=== PATIENT | female | born 1940 ===

== ENCOUNTER 2024-08-09 19:15 | Inpatient (IN) | payer OTHER, SELFPAY ==
[2024-08-09 19:21] VITALS: BP 103/53
[2024-08-09 20:38] VITALS: BP 111/52
--- NOTE | 2024-08-09 21:56 | HPS.HSE ---
Family Physician
-
Family Physician: Martin Padgett
Chief Complaint
-
Shortness of breath
History of Present Illness
This is an 84-year-old female with past medical history that is significant for aortic stenosis, mitral regurg, hypertension, CHF, nonobstructive CAD, proximal atrial fibrillation, insulin-dependent diabetes who presented to outside hospital for
shortness of breath where she was found to have CHF exacerbation and possible bilateral pneumonia, initially managed and transferred here for TAVR.
She was apparently recently discharged from the same outside hospital for similar presentation. She reported 1 day of increased dyspnea requiring use of home CPAP and that she had oxygen saturation of 79% on arrival in the emergency department over
there. She had nausea but no chest pain cough or sputum. She had no fevers chills sweats. She was found to be in CHF requiring BiPAP. Due to severe leukocytosis the patient was also started on broad-spectrum antibiotics vancomycin and cefepime.
Cultures of the sputum were sent and pending. Patient has known severe and cardiology recommended evaluation for TAVR, patient was accepted and transferred to . Additional issues during in the admission and is GINGER on CKD. The creatinine
ranged from 1.5-1.1. At the time of discharge the creatinine was 1.1 and patient was making urine and responding to Lasix 40 mg daily. She had elevated troponin which was thought to be nonobstructive myocardial injury to be managed by managing her
congestive heart failure. She had persistently elevated potassium requiring multiple doses of Lokelma and was discharged she had a potassium of 5.3.
On arrival here she was afebrile, normotensive but hypoxic to 70s on 3 L nasal cannula. She had increased work of breathing. Examination showed crackles bilaterally. Patient was placed on nonrebreather which brought oxygen saturation to 95. She
was supposed to be on AVAPS at bedtime per records however the settings were not transferred. Patient was placed on BiPAP initially 12/5 according to prior settings. Gas shows 7.2 . BiPAP was adjusted to 16/5 and a repeat ABG shows
worsening pH and CO2. She had hyperkalemia on arrival with a potassium of 6.2, EKG without peaked T waves and no acute ischemia, patient temporized. Initial troponin was 0.4 which has been trended.
Medical History
Past Medical History
Past Medical History: Reports Arrhythmia (Atrial fibrillation, status post ablation), CAD, COPD, HTN, Hypercholesterolemia, IDDM and Valvular Disease (Severe aortic stenosis, mitral valve stenosis)
Additional Past Medical History:
Spinal stenosis
Past Surgical History: Reports Cholecystectomy and
Social History
Tobacco: Non-smoker
Alcohol: None
Drug: None
Personal:
Living: With Family
Employment: Retired
Family History
Family History: Not pertinent
Allergies / Home Medications
Allergies reflects when Allergies were last updated in [employer].
Home Medications with original date entered in [employer]
Allergy/Medication List:
Allergies
Allergy/AdvReac Type Severity Reaction Status Date / Time
Penicillins Allergy Swelling Verified 06/16/16 07:20
Sulfa (Sulfonamide Allergy Swelling Verified 06/16/16 07:20
Antibiotics)
Home Medications
Aspirin 81 mg tablet, 1 tablet oral daily
Aspirin 81 mg tablet,
Aspirin 81 mg tablet, 1 tablet oral daily
Atorvastatin 40 mg tablet, 1 tablet oral daily at bedtime
Clopidogrel for seven 5 mg tablet, 1 tablet oral daily
Furosemide 40 mg tablet, 1 tablet oral twice daily
Insulin glargine 100 units/mL, 44 units subcutaneous daily at bedtime
Magnesium oxide 400 mg tablet, 1 tablet oral twice a day
Nateglinide 120 mg tablet, 1 tablet oral 3 times daily
Nifedipine 60 mg tablet extended release, 1 tablet oral at bedtime
Pantoprazole 40 mg tablet, 1 tablet oral twice daily
Tiotropium 2.5 mcg/actuation mist, 2 sprays by inhalation daily
Albuterol sulfate 2.5 mg / 3 mL solution, 3 mL by inhalation every 6 hours as needed wheezing
Review of Systems
-
History Source: Patient
Constitutional: Reports No Symptoms
EENT: Reports No Symptoms
Respiratory: Reports Trouble Breathing
Cardiac: Reports No Symptoms
Abdomen/GI: Reports Nausea
: Reports Bey
Musculoskeletal: Reports Edema
Skin: Reports No Symptoms
Neurological: Reports No Symptoms
Endocrine: Reports No Symptoms
Hematologic/Lymphatic: Reports No Symptoms
Psych: Reports No Symptoms
Physical Exam
Vital Signs
Vital Signs
Temp Pulse Resp BP Pulse Ox
97.5 F 84 24 111/52 98
08/09/24 19:49 08/09/24 21:00 08/09/24 19:49 08/09/24 20:38 08/09/24 21:00
Physical Exam
General: Respiratory Distress
HEENT: NormoCephalic, Anicteric, Moist mucous membranes and Atraumatic
Respiratory: Wheezes, Crackles and Decreased Breath Sounds
Cardiac: S1/S2, Regular Rhythm, Murmur, Peripheral Edema and Carotid Pulses
Breast: Deferred by me
GI: Soft, Non Tender, Normal Bowel Sounds and Distended
Rectal: Deferred by Provider
Genito-urinary: Bey
Musculoskeletal: No Clubbing, No Cyanosis, Edema, Left Lower Extremity and Edema, Right Lower Extremity
Skin: Warm
Neuro: AO x 3 and Nonfocal/grossly intact
Hematologic/Lymphatic: No Lymphadenopathy
Psych: Calm
Laboratory Results
-
08/10/24 00:50
Laboratory Results
pH 7.26 (7.35-7.45) L 08/09/24 23:25
pCO2 59 mmHg (32-35) H 08/09/24 23:25
pO2 69 mmHg (83-108) L 08/09/24 23:25
HCO3 26.5 mmol/L (21-28) 08/09/24 23:25
Total Bilirubin 1.3 mg/dl (0.2-1.3) 08/10/24 00:50
AST 30 U/L (14-36) 08/10/24 00:50
ALT 45 U/L (0-35) H 08/10/24 00:50
Alkaline Phosphatase 83 U/L (38-126) 08/10/24 00:50
Troponin I Cancelled 08/10/24 00:50
Data Reviewed
-
Lab Data: Labs Reviewed by me
Old Records: Reviewed
Impression/Plan
-
IMPRESSION:
Patient with history of congestive heart failure, severe AAS and mitral regurg who presents from outside hospital for management he is in the setting of worsening heart failure. Patient arrived on 3 L hypoxic to 70s and in respiratory distress.
She had previously been weaned down to nasal cannula from BiPAP at outside hospital. Satting 96% on NRB. Crackles on examination. Acute on chronic respiratory acidosis noted.
PLAN:
1. Hypoxic Respiratory failure - Ongoing hypoxia from likely pulmonary edema. Possible superimposed pna with persistent leukocytosis
- NIPPV, was on AVAPs HS at [facility], start BIPAP 16/5 now 8 L, titrate oxygen for > 95% FIO2
- lasix 40mg iv daily at [facility], gave addition lasix 40mg IV tonight,
- Continue antibiotics cefepime 1g q 12
- Vancomycin held, check mrsa, random vanc level before dosing given renal function
- on antibiotics since 08/08, afebrile, ID consultation - sputum and blood cultures pending from [facility]
- xray in am
2. CHF - acute on chronic with severe . Non-obstructive CAD on recent echo
- cardiology consult for possible TAVR
- medical management - lasix 40mg iv daily for net negative as BP tolerates (hold parameters
- patient on labetolol 100 bid w/ hold parameters
3. Non-ischemic myocardial injury - trop 0.4 here, has been elevated since 08/08.
- continue plavix. aspirin
- trend trop daily
- cardiology consult
4. Hyperkalemia - GINGER on CKD, Dm II. Not currently on acei/arb.
- acute management of 6.2 with temporizing measures, calcium gluc,insulin/dextrose,albuterol. Given lokelma
- k restricted diet
- nephrology consultation
5. GINGER - GINGER on CKD Cr 1.5. Oliguric since arrival here despite lasix.
- trending up
- likely cardiorenal versus ATN urine lytes, creatinine, u/a
- gentle diuresis as tolerated
- nephrology consultation
6 DM II
- management with lantus 40 hs, sliding scale insulin
7. pFIB
- rate controlled
- not currently anticoagulated, reason unclear
DVT PPX - hep sq
Code status - full code
--- NOTE | 2024-08-09 21:59 | PHA.VAN.IN ---
Assessment
- Assessment
Renal Function: Appears elevated from baseline (06/17/16 BASELINE SCR: 0.8)
Concomitant Antimicrobials: CEFEPIME
- Previous Dosing Experience
Previous Regimen: NONE
Plan
- Plan
Initial / Loading Dose: 1750MG
Maintenance Regimen: DOSING BY RANDOM LEVELS
Monitoring: RANDOM VANCOMYCIN LEVEL 08/10/24 AM
Pharmacokinetics Vancomycin I
- -
Patient Age: 84
Patient Sex: Female
Vancomycin Day #: 1
Indication: Pulmonary/Respiratory
Requesting Provider: PHUONG
Pertinent Antimicrobial Allergies:
Allergies
Penicillins Allergy (Verified 06/16/16 07:20)
Swelling
skin red, swollen face, skin peeled
Sulfa (Sulfonamide Antibiotics) Allergy (Verified 06/16/16 07:20)
Swelling
skin red, swollen face, skin peeled
Height / Weight:
Height 5 ft 7 in
Actual Weight 75.8 kg
Pertinent Past Medical History: IDDM
- Vital Signs / Lab Results
Temp Pulse Resp BP Pulse Ox
97.5 F 84 24 111/52 98
08/09/24 19:49 08/09/24 21:00 08/09/24 19:49 08/09/24 20:38 08/09/24 21:00
[2024-08-09 22:00] VITALS: PULSE 2; PULSE 84
[2024-08-09 22:38] VITALS: BP 110/49
[2024-08-09 23:12] LABS: Glucose - Point of Care 197 mg/dl (70-99)
[2024-08-09] MEDS: STERILE WATER FOR INJECTION 10 ML IV (23:14)
[2024-08-09] MEDS: MAXIPIME 2000 MG IV (23:14)
[2024-08-09] MEDS: LASIX 40 MG IV (23:15)
[2024-08-09] MEDS: HEPARIN 5000 UNITS SC (23:28)
[2024-08-09] MEDS: LANTUS 0.4 UNITS SC (23:28)
[2024-08-09 23:35] LABS: B.E. -0.9 mmol/L; HCO3 26.5 mmol/L (21-28); O2 Saturation % 96.4 % (94-98); PCO2 59 mmHg (32-35); PO2 69 mmHg (83-108); pH 7.26 (7.35-7.45)
[2024-08-09 23:37] LABS: O2 Therapy 8L
[2024-08-09 23:55] VITALS: BP 103/51
[2024-08-10] VITALS (22 sets, daily range): BP systolic 89–121; BP diastolic 45–75; PULSE 2–81; BMI 26.4
[2024-08-10] MEDS: DUONEB 3 ML INH (00:31)
[2024-08-10 01:15] LABS: Hematocrit 24.8 % (37.0-47.0); Hemoglobin 7.9 g/dL (12.0-16.0); Mean Corp Hgb Conc. 31.9 g/dL (33.0-37.0); Mean Corpuscular Hgb 28.5 pg (27.0-31.0); Mean Corpuscular Volume 89.5 fL (81.0-99.0); Mean Platelet Volume 11.6 fL (7.4-10.4); Platelet Count 215 10^3/uL (130-400); Red Blood Cell Count 2.77 10^6/uL (4.20-5.40); Red Cell Dist. Width 16.3 % (11.5-14.5); White Blood Cell Count 20.8 10^3/uL (4.8-10.8)
[2024-08-10 01:37] LABS: ALT (SGPT) 45 U/L (0-35); AST (SGOT) 30 U/L (14-36); Albumin 3.9 g/dl (3.5-5.0); Alkaline Phosphatase 83 U/L (38-126); Blood Urea Nitrogen 66 mg/dl (7-17); Calcium 8.9 mg/dl (8.4-10.2); Carbon Dioxide 24 mmol/L (22-30); Chloride 94 mmol/L (98-107); Direct Bilirubin 0.4 mg/dl (0.0-0.4); Estimated Creatinine Clearance 27 ml/min; Glucose 162 mg/dl (70-99); HDL Cholesterol 52 mg/dl; LDL Cholesterol, Calculated 58 mg/dl; Magnesium 2.8 mg/dl (1.6-2.3); Phosphorus 6.2 mg/dl (2.5-4.5); Potassium 6.2 mmol/L (3.5-5.1); Sodium 129 mmol/L (135-145); Total Bilirubin 1.3 mg/dl (0.2-1.3); Total Cholesterol 141 mg/dl (50-199); Total Protein 6.2 g/dl (6.3-8.2); Triglyceride 157 mg/dl (10-149); Very Low Density Lipoprotein 31 mg/dl (0-30); eGFR 34.15
[2024-08-10 01:44] LABS: Troponin I 0.405 ng/ml
[2024-08-10 01:58] LABS: Glucose - Point of Care 194 mg/dl (70-99)
[2024-08-10 02:00] LABS: TSH Reflex To Free T4 5.23 uIU/ml (0.47-4.68)
[2024-08-10] MEDS: DEXTROSE 50% SYRINGE 25 GRAMS IV (02:09)
[2024-08-10] MEDS: SODIUM BICARBONATE 50 MEQ IV (02:12)
[2024-08-10] MEDS: CALCIUM GLUCONATE 1000 MG IV (02:32)
[2024-08-10] MEDS: NOVOLIN R 0.1 UNITS IV (02:33)
[2024-08-10] MEDS: VENTOLIN NEBULES INH (02:47)
[2024-08-10] MEDS: VENTOLIN NEBULES 10 MG INH (02:51)
[2024-08-10 03:25] LABS: Glucose - Point of Care 242 mg/dl (70-99)
[2024-08-10] MEDS: LOKELMA 10 GRAM PO ×3 (03:25→21:52)
[2024-08-10 04:44] LABS: Glucose - Point of Care 232 mg/dl (70-99)
[2024-08-10 05:22] LABS: Venous Blood Gas B.E. 0.7 mmol/L (-4 to +4); Venous Blood Gas HCO3 28.9 mmol/L (22-27); Venous Blood Gas O2 Sat % 54.1 %; Venous Blood Gas pCO2 69 mmHg (35-48); Venous Blood Gas pH 7.23 (7.32-7.43); Venous Blood Gas pO2 30 mmHg (30-50)
[2024-08-10 05:27] LABS: Hematocrit 24.5 % (37.0-47.0); Hemoglobin 7.8 g/dL (12.0-16.0); Mean Corp Hgb Conc. 31.8 g/dL (33.0-37.0); Mean Corpuscular Hgb 28.8 pg (27.0-31.0); Mean Corpuscular Volume 90.4 fL (81.0-99.0); Mean Platelet Volume 11.5 fL (7.4-10.4); Platelet Count 211 10^3/uL (130-400); Red Blood Cell Count 2.71 10^6/uL (4.20-5.40); Red Cell Dist. Width 16.6 % (11.5-14.5); White Blood Cell Count 18.1 10^3/uL (4.8-10.8)
[2024-08-10 05:42] LABS: Vancomycin Random 13.6 ug/ml
[2024-08-10 05:44] LABS: Blood Urea Nitrogen 70 mg/dl (7-17); Carbon Dioxide 28 mmol/L (22-30); Chloride 93 mmol/L (98-107); Estimated Creatinine Clearance 24 ml/min; Glucose 188 mg/dl (70-99); Potassium 5.6 mmol/L (3.5-5.1); Sodium 129 mmol/L (135-145); eGFR 29.39
[2024-08-10 06:16] LABS: Troponin I 0.554 ng/ml
--- NOTE | 2024-08-10 06:45 | PTCARENOTE ---
Pt received as Tx from Seferino Vu at change of shift. Upon Tx, pt. appeared to be in distress, tachypneic, hunched over in stretcher with labored breathing. Pt also with complaints of SOB. POX 74% on 4L NC. O2 titrated up to 6L NC and POX
80%. Pt placed on Nonrebreather at 10L and POX up to 92%. Dr. Wolf to bedside to assess pt and place admission orders. Orders for continuous Bipap placed and respiratory to bedside to set up. Labs ordered and obtained, K critical at 6.2,
notified and medications administered per orders. Bipap settings adjusted based on ABG results. Dr. Wolf back to bedside to reassess pt. VBG ordered and sent. Pt continues to decompensate despite Bipap. Higher level of care ordered. Pt
transferred to CVICU and report given to HAUL DRIVER.
[2024-08-10 06:53] LABS: Glucose - Point of Care 203 mg/dl (70-99)
[2024-08-10 07:34] LABS: B.E. 2.2 mmol/L; HCO3 29.4 mmol/L (21-28); O2 Saturation % 98.7 % (94-98); PCO2 64 mmHg (32-35); PO2 93 mmHg (83-108); pH 7.27 (7.35-7.45)
[2024-08-10] MEDS: SPIRIVA RESPIMAT 2.5 MCG 2 PUFF INH (07:54)
[2024-08-10 08:23] LABS: Glucose - Point of Care 181 mg/dl (70-99)
[2024-08-10] MEDS: HEPARIN 5000 UNITS SC ×2 (08:25→16:41)
[2024-08-10] MEDS: LASIX 40 MG IV (08:25)
--- NOTE | 2024-08-10 08:43 | PTCARENOTE ---
Received pt from IVU RN; pt AAOx3 and resting comfortably in bed; NSR on monitor and VSS; Lungs Diminished, Crackles and Coarse throughout; BIPAP placed 14/5 and labs drawn; hypoactive active bowel sounds; Bey catheter draining yellow urine; B/L
Pedal pulse present by Doppler; +2 lower extremity edema; skin tear on lower abdomen dressing C/D/I; see nursing documentation for further details.
[2024-08-10] MEDS: TRANDATE 100 MG PO ×2 (09:13→20:26)
[2024-08-10] MEDS: MAXIPIME 2000 MG IV (09:13)
[2024-08-10] MEDS: STERILE WATER FOR INJECTION 10 ML IV (09:13)
[2024-08-10] MEDS: LOW STRENGTH ASPIRIN 81 MG PO (09:13)
--- NOTE | 2024-08-10 09:21 | PTCARENOTE ---
Turned pt, CHG bath provided and mouth care preformed; Sacrum St 2 noted on sacrum, per pt this St 2 was from a previous hospital stay at [facility]; silicone boarder foam applied and pt made a Q2turn.
--- NOTE | 2024-08-10 09:27 | W.PN.HOSP.TC ---
Today's Communication/Plan
-
see AP
Assessment / Plan
Assessment / Plan
HPI: 84-year-old female with past medical history significant for aortic stenosis, mitral regurg, hypertension, CHF, nonobstructive CAD, proximal atrial fibrillation, insulin-dependent diabetes who presented to outside hospital for shortness of
breath where she was found to have CHF exacerbation and possible bilateral pneumonia, initially managed and transferred here for TAVR.
She was apparently recently discharged from the same outside hospital for similar presentation. She reported 1 day of increased dyspnea requiring use of home CPAP and that she had oxygen saturation of 79% on arrival in the emergency department over
there. She was found to be in CHF requiring BiPAP. Due to severe leukocytosis the patient was also started on broad-spectrum antibiotics vancomycin and cefepime. Cultures of the sputum were sent and pending.
Patient has known severe and cardiology recommended evaluation for TAVR, patient was accepted and transferred to . Additional issues during in the admission and is GINGER on CKD.
Her creatinine ranged from 1.5-1.1. At the time of discharge, her creatinine was 1.1 and patient was making urine and responding to Lasix 40 mg daily.
She had elevated troponin which was thought to be nonobstructive myocardial injury. She had persistently elevated potassium requiring multiple doses of Lokelma and was discharged with a potassium level of 5.3.
On arrival here she was afebrile, normotensive but hypoxic to 70s on 3 L nasal cannula. She had increased work of breathing. Examination showed crackles bilaterally. Patient was placed on nonrebreather which brought oxygen saturation to 95. She
was supposed to be on AVAPS at bedtime per records however the settings were not transferred.
She had hyperkalemia on arrival with a potassium of 6.2, EKG without peaked T waves and no acute ischemia, patient temporized. Initial troponin was 0.4.
A/P:
# Acute on chronic hypoxic respiratory failure
# Ongoing hypoxia from likely pulmonary edema, possible superimposed HAP with persistent leukocytosis
# Acute respiratory acidosis
Cont NIPPV with BIPAP 16/5. She was on AVAPs HS at [facility]
Cont IV lasix 40mg daily
Continue antibiotics cefepime 1g q 12, Vanco per pharmacy dosing
Check mrsa, random vanc level before dosing given renal function
Of note, pt had been on antibiotics since 08/08, afebrile
ID consultation - sputum and blood cultures pending from [facility]
Check CXR
Geology Scientist on board
IV PPI for GI protection
# Acute on chronic CHF 2/2 severe .
cardiology consult for possible TAVR
Medical management with lasix 40mg iv daily for net negative as BP tolerates (hold parameters)
patient on labetalol 100 bid w/ hold parameters
# Non-ischemic myocardial injury
Trend trop until peal
continue plavix, aspirin
cardiology consulted
# Hyperkalemia likely 2/2 GINGER on CKD, Dm II.
Not currently on acei/arb.
s/p temporizing measures, calcium gluc, insulin/dextrose, albuterol. s/p lokelma
K improved from 6.2 to 5.6
k restricted diet
nephrology consultation
# GINGER on CKD ?stage 3, cardiorenal versus ATN
Oliguric since arrival here despite lasix.
Follow SCr
IV lasix as above
Hold ACEI/ARB (med recc not done, unclear home meds)
nephrology consultation
# IDDM
Cont lantus 40 HS,
Cover with sliding scale insulin
# pFIB, rate controlled
Cont Labetalol
not currently anticoagulated, reason unclear
# HTN
BP controlled on Labetalol and nifedipine, cont with holding parameter
DVT PPX - hep sq
Code status - full code
updated nino Gloria on the phone
CC Mx for hypoxic resp failure, CC time 45 min
Anticipated Discharge: > 48 hours
Subjective/Interval History
-
Date of Service: August 10, 2024
Objective Data
-
Labs:
Laboratory Results
08/09/24 08/10/24 08/10/24
23:25 00:50 05:13
WBC 20.8 H 18.1 H
Hgb 7.9 L 7.8 L
Hct 24.8 L 24.5 L
Plt Count 215 211
HCO3 26.5
Sodium 129 L 129 L
Potassium 6.2 H* Pending
Chloride 94 L
Carbon Dioxide 24
BUN 66 H
Creatinine 1.5 H
Glucose 162 H
Calcium 8.9
Total Bilirubin 1.3
AST 30
ALT 45 H
Alkaline Phosphatase 83
08/10/24 08/10/24 08/10/24
05:13 05:13 07:15
WBC
Hgb
Hct
Plt Count
HCO3 29.4 H
Sodium
Potassium Cancelled 5.6 H
Chloride 93 L
Carbon Dioxide 28
BUN 70 H
Creatinine 1.7 H
Glucose 188 H
Calcium 9.0
Total Bilirubin
AST
ALT
Alkaline Phosphatase
08/10/24
09:15
WBC
Hgb
Hct
Plt Count
HCO3 Pending
Sodium
Potassium
Chloride
Carbon Dioxide
BUN
Creatinine
Glucose
Calcium
Total Bilirubin
AST
ALT
Alkaline Phosphatase
Vital Signs:
Vital Signs
Temp Pulse Resp BP Pulse Ox
36.4 C 76 23 121/49 99
08/10/24 08:00 08/10/24 09:10 08/10/24 09:10 08/10/24 08:00 08/10/24 09:10
I&O
08/09/24 08/10/24 08/11/24
06:59 06:59 06:59
Output Total 175 / 175 90 / 90
Balance -175 / -175 -90 / -90
Review of Systems
-
All other systems: Reviewed and negative
Physical Exam
-
General: Well Developed, Well Nourished, Comfortable, Respiratory Distress, Conversant and Appears Chronically Ill
HEENT: Normocephalic, Atraumatic, Nose Appears Normal, Ears Appear Normal and Oxygen (BIPAP)
Respiratory: Clear to Auscultation and Non Labored Respirations; Negative Accessory Resp Muscle Use
Cardiac: Regular Rhythm, S1/S2 and Murmur
GI: Soft, Nontender, Nondistended and Normal Bowel Sounds
Skin: Warm and Dry
Neuro: Awake, Alert and Oriented
Psych: Calm and Intact Judgement/Insight
Data Reviewed
-
Labs: Labs Reviewed by me
--- NOTE | 2024-08-10 09:28 | PHA.VAN.FU ---
Addendum entered and electronically signed by Teresa Stuart [facility] 08/10/24 09:34:
Of note, Vancomycin 1750 mg loading dose was not administered
Original Note:
Vancomycin Assessment / Plan
- Assessment
Renal Function: SCR Increasing (no baseline data)
WBC's are: Trending Down
In the past 24 hrs, patient has been: Afebrile
Concomitant Antimicrobials: cefepime
- Assessment - Therapeutic Drug Monitoring
Random Level: 13.6 - unknown time of last dose
- Dosing Plan
Continue: to dose by level
Dosing by Level: Re-dose today (750 mg)
- Monitoring Plan
Random Level: 12/12 am
MRSA Screen: Ordered per protocol (PCR)
- Follow Up
Pharmacy will continue to follow.
Vancomycin Follow UP
- -
Patient Age: 84
Patient Sex: Female
Vancomycin Day #: 2
Indication: Pulmonary/Respiratory
Requesting Provider: PHUONG
Pertinent Antimicrobial Allergies:
Allergies
Penicillins Allergy (Verified 06/16/16 07:20)
Swelling
skin red, swollen face, skin peeled
Sulfa (Sulfonamide Antibiotics) Allergy (Verified 06/16/16 07:20)
Swelling
skin red, swollen face, skin peeled
Height / Weight:
Height 5 ft 8 in
Actual Weight 76.5 kg
Pertinent Past Medical History: IDDM, CHF, CAD; received vancomycin from [facility] prior to transfer
- Vital Signs / Lab Results
Temp Pulse Resp BP Pulse Ox
97.5 F 76 23 121/49 99
08/10/24 08:00 08/10/24 09:10 08/10/24 09:10 08/10/24 08:00 08/10/24 09:10
Lab Results - Hematology
08/10/24 08/10/24
00:50 05:13
WBC 20.8 H 18.1 H
Lab Results - Chemistry
08/10/24 08/10/24
00:50 05:13
BUN 66 H 70 H
Creatinine 1.5 H 1.7 H
Estimated Creat Clear 24
Albumin 3.9
Therapeutic Drug Monitoring
Random Vancomycin 13.6 ug/ml 08/10/24 05:13
[2024-08-10 09:30] LABS: B.E. 1.6 mmol/L; HCO3 28.9 mmol/L (21-28); O2 Saturation % 99.5 % (94-98); PCO2 63 mmHg (32-35); PO2 94 mmHg (83-108); pH 7.27 (7.35-7.45)
[2024-08-10] MEDS: VANCOCIN 150 IV (10:01)
--- NOTE | 2024-08-10 10:27 | CON.CAR ---
Addendum entered and electronically signed by Kartik Moore MD 08/10/24 11:50:
I saw and examined the patient.
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
Comment: 84-year-old female (formerly known to Dr Brito, transitioning to Dr. Christian), hypertension, dyslipidemia, paroxysmal atrial fibrillation status post ablation (not on oral anticoagulation), TIA (on DAPT), bilateral carotid disease, HFpEF,
and severe aortic stenosis who was received in transfer from [facility] for evaluation of TAVR. She has a history of recurrent hospitalization with hypoxic respiratory failure now in the setting of heart failure and possible pneumonia
currently on BiPAP for respiratory support. We are asked to evaluate and expedite TAVR evaluation. However, currently, she is oliguric after Lasix dosing, hyponatremic, hyperkalemic and anemic. She complains of fatigue and shortness of breath.
On exam, she appears in mild distress with a BiPAP mask on she has a regular rate and rhythm with a 2 out of 6 crescendo decrescendo murmur heard in all areas but her heart sounds are caudally displaced, crackles heard bilaterally midway down.
Extremities with 1-2+ pitting edema. ECG shows sinus rhythm with primary AV conduction delay, right bundle branch block with left anterior fascicular block,echocardiogram report below with normal LVEF and severe aortic stenosis, PFO. Grade 2
diastolic dysfunction. Overall, she needs medical optimization before consideration of an valve replacement. Active problems include hypoxic respiratory failure requiring BiPAP, acute heart failure with preserved EF, symptomatic severe aortic
stenosis, type II non-STEMI in the setting of heart failure and severe aortic stenosis, acute kidney injury, bilateral pneumonia, hyponatremia in the setting of hypervolemia, and anemia. Chronic medical conditions to be considered as a history of
atrial fibrillation/flutter not on anticoagulation, TIA, right bilateral carotid disease. We will continue to try to medically manage her volume status, we await the assistance of nephrology. Likely needs more diuretic later today. Case discussed
with pinner printed circuit boards Dr. Morris who will evaluate her tomorrow. Medicine to evaluate for pneumonia and anemia. In the future, given her history of chronic atrial fibrillation, CHADS2 Vascor of 9 would recommend transitioning her DAPT
to Plavix and Eliquis.
Will follow-up.
Original Note:
Consultation
Consultation Request
Date/Time Consultation Requested: 08/09/2024 21:00
Date/Time Consultation Performed: 08/10/2024 08:30
Requesting Provider: Dr. Wolf
Performing Provider: BLAYNE Barajas for Dr. Moore
Reason for Consultation: Acute heart failure
Medical History
-
Chief Complaint: Shortness of breath
History of Present Illness:
Brisa Bella is an 84-year-old female (formerly known to Dr Brito, transitioning to Dr. Christian), hypertension, dyslipidemia, paroxysmal atrial fibrillation status post ablation (not on oral anticoagulation), TIA (on DAPT), bilateral carotid
disease, HFpEF, and severe aortic stenosis who initially presented to [facility] with a chief complaint of shortness of breath on 08/08/2024. At home her SpO2 was 79% on room air. She had an elevated BNP, abnormal troponin,
leukocytosis, and bilateral patchy opacities on chest x-ray. She was diuresed with intravenous furosemide, placed on BiPAP, and admitted to the ICU for further management. VBG showed compensated respiratory acidosis. She was then transitioned to
3 L nasal cannula. She was transferred to [facility] last evening for expedited TAVR evaluation.
The patient was recently admitted at [facility] and was just discharged 2 days prior to this readmission.
Past Medical History
Past Medical History: Arrhythmias (Paroxysmal atrial fibrillation [status post ablation, not on oral anticoagulation]), CHF, HTN, Hypercholesterolemia, Valvular Disease (Severe aortic stenosis, mitral annular calcification) and Other (TIA, bilateral
carotid disease [on DAPT])
Past Surgical History: Cholecystectomy and Orthopedic
Social History
Tobacco: Non-Smoker
Alcohol: None
Drug: None
Living: With Family (disabled daughter)
Employment: Retired
Family History
Family History: Reviewed & Not Pertinent
Allergies / Home Medications
Allergy/AdvReac Type Severity Reaction Status Date / Time
Penicillins Allergy Swelling Verified 06/16/16 07:20
Sulfa (Sulfonamide Allergy Swelling Verified 06/16/16 07:20
Antibiotics)
�Medication �Instructions �Recorded �Confirmed �Type
ascorbic acid (vitamin C) 500 mg 1,000 mg PO DAILY 06/16/16 06/16/16 History
tablet (Vitamin C)
calcium carbonate (calcium) 500 mg PO BID 06/16/16 06/16/16 History
cholecalciferol (vitamin D3) 50 2,000 unit PO DAILY 06/16/16 06/16/16 History
mcg (2,000 unit) tablet
coenzyme [id number] E 100 mg-100 500 mg PO DAILY 06/16/16 06/16/16 History
unit capsule
cyanocobalamin (vitamin B-12) 1,000 mcg PO DAILY 06/16/16 06/16/16 History
1,000 mcg tablet
fish oil-dha-epa 1,200 mg-144 2 ea PO BID 06/16/16 06/16/16 History
mg-216 mg capsule
insulin glargine 100 unit/mL 28 units SC HS 06/16/16 06/16/16 History
subcutaneous solution (Lantus
U-100 Insulin)
insulin glargine 100 unit/mL 38 units SC DAILY 06/16/16 06/16/16 History
subcutaneous solution (Lantus
U-100 Insulin)
irbesartan 300 mg tablet 300 mg PO DAILY 06/16/16 06/16/16 History
labetalol 300 mg tablet 300 mg PO HS 06/16/16 06/16/16 History
labetalol 300 mg tablet 600 mg PO DAILY 06/16/16 06/16/16 History
lansoprazole 30 mg capsule,delayed 30 mg PO DAILY 06/16/16 06/16/16 History
release
lisinopril 20 mg tablet 20 mg PO BID 06/16/16 06/16/16 History
multivitamin with minerals-ferrous 1 ea PO DAILY 06/16/16 06/16/16 History
sulfate 4.5 mg iron tablet (One
Daily Multivitamins with Minerals)
nateglinide 120 mg tablet (Starlix) 120 mg PO TID 06/16/16 06/16/16 History
nifedipine 90 mg tablet,extended 90 mg PO DAILY 06/16/16 06/16/16 History
release
simvastatin 20 mg tablet 20 mg PO QPM 06/16/16 06/16/16 History
apixaban 5 mg tablet (Eliquis) 5 mg PO BID ##60 06/17/16 Rx
metformin 500 mg tablet 1,000 mg (2 x 500 mg) PO DAILY ##0 06/17/16 06/16/16 Rx
metformin 500 mg tablet 500 mg PO BID@1200,1700 ##0 06/17/16 06/16/16 Rx
Review of Systems
-
History Source: Patient
All other systems: Negative unless noted
Constitutional: Fatigue
EENT: No Symptoms
Respiratory: Trouble Breathing
Cardiac: No Symptoms
Abdomen/GI: Anorexia
: No Symptoms
Musculoskeletal: No Symptoms
Skin: No Symptoms
Neurological: Weakness
Endocrine: No Symptoms
Hematologic/Lymphatic: No Symptoms
Physical Exam
Vital Signs
Temp Pulse Resp BP Pulse Ox
97.5 F 82 31 121/49 98
08/10/24 08:00 08/10/24 10:00 08/10/24 10:00 08/10/24 08:00 08/10/24 10:00
Lab Results
08/10/24 05:13
Troponin I 0.554 ng/ml H* D 08/10/24 05:13
Troponin I Cancelled 08/10/24 05:13
Physical Exam
General: Well Developed, Well Nourished and Respiratory Distress (mild)
HEENT: Normocephalic, Anicteric and Moist Mucous Membranes
Respiratory: Crackles (coarse) and Accessory Resp Muscle Use
Cardiac: S1/S2, Regular Rhythm and Murmur (III/ crescendo decrescendo)
Breast: Deferred by me
GI: Soft, Non Tender, Non Distended and Normal Bowel Sounds
Rectal: Deferred by Provider
Genito-urinary: Clear Urine
Musculoskeletal: No Clubbing, No Cyanosis and No Edema (+2 bilateral lower extremity)
Skin: Warm and Dry
Neuro: AO x 3
Hematologic/Lymphatic: No Lymphadenopathy
Psych: Calm
Impression / Plan
-
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
to [facility] with a chief complaint of shortness of breath on 08/08/2024.
Primary soda clerk: Formerly Dr. Brito, now with Dr. Christian
HFpEF, acute on chronic
-Update echocardiogram for LVEF reassessment
-Await output on furosemide 40 mg, she may need a higher dose, per nephrology
-GDMT will be limited due to her renal function
-Scale at [facility] 75.8 kg 08/08/2024
Severe aortic stenosis
-Mean gradient 46 mmHg on echocardiogram in May with SEVERO 0.7
-Goal euvolemia
-Structural heart team has evaluated the patient
Abnormal troponin, Type II TX
-Chest pain-free
-Trend to peak
-Consider transition to apixaban when she is clinically stable
GINGER on CKD versus cardiorenal syndrome, nephrology following
Hyperkalemia, nephrology consulted
Hyponatremia, likely hypervolemia
Anemia, no acute bleeding, type unknown, per primary service
Paroxysmal atrial fibrillation
-Prior flutter ablation in 2013 ([facility], Dr. Berry at [facility]) and then fibrillation in 2016 ([facility])
-Stable in sinus rhythm
-Oral Anticoagulation: None, she had a nosebleed on Pradaxa
-[id number]: score at least 9 (Heart failure, HTN, age 75 or more, prior Stroke/TIA, DM, Vascular disease, female gender)
Hypertension
-Stop Procardia, avoid hypotension
Possible PFO on prior echocardiogram
Nonobstructive coronary artery disease, stable without chest pain, continue aspirin
Sick sinus syndrome, documented prior to her second ablation, does not seem to be an active issue
Type 2 diabetes mellitus, on long-acting insulin, Hgba1c pending, per primary service
TIA, no residual deficit
Dyslipidemia, LDL at goal, continue current atorvastatin dosing
Bilateral carotid artery disease, DAPT was recommended by her neurologist (clopidogrel/aspirin)
DATA:
Transthoracic echocardiogram, 05/04/2024:
CONCLUSIONS
Normal left ventricular size, moderate concentric wall thickness and systolic
function.
No regional wall motion abnormalities are seen.
The ejection fraction is estimated at 65 %.
Grade 2 diastolic dysfunction.
Normal right ventricular size and function.
Moderately severe left atrial enlargement
Small fiber directional PFO may be present.
Normal right atrium.
Moderate MAC. Structurally abnormal mitral valve w/ mildly thickened leaflets
and mild mitral stenosis w/ mild regurgitation.
Structurally abnormal aortic valve with calcium and thickness with restriction
and significant stenosis consistent with severe . Mean gradient 46 mmhg w/
SEVERO 0.7 sq cm.
Structurally normal tricuspid valve without significant stenosis w/ mild
regurgitation.
Estimated pulmonary artery pressure is 24 mmHg.
Structurally normal pulmonic valve without significant stenosis w/ trivial
regurgitation.
Normal pericardium without effusion.
Normal aortic root.
BC not well-seen.
--- NOTE | 2024-08-10 11:24 | CONSULT.STRU ---
Consultation
-
Date/Time Consultation Requested: 08/10/2024
Date/Time Consultation Performed: 08/10/2024
Requesting Provider: Dr. Lobo
Performing Provider: BLAYNE Wray
Reason for Consultation: Severe Aortic Stenosis/ TAVR evaluation
Patient History
Physicians
Family Physician: Steven Padgett
Outpatient Window Framer: Chloe Nagel, transferring care to Eloy Christian
Primary Window Framer: Eloy Christian
History of Present Illness
84-year-old female with past medical history significant for aortic stenosis, mild mitral regurg, mild mitral stenosis, hypertension, HFpEF, nonobstructive CAD, paroxysmal atrial fibrillation with history of ablation (not on anticoagulation),
carotid stenosis, insulin-dependent diabetes who presented to [facility] for shortness of breath where she was found to have CHF exacerbation (thought to be related to her severe aortic stenosis) and possible bilateral pneumonia. She
was transferred here late last evening for TAVR evaluation. On arrival to the ER here she was afebrile, normotensive but hypoxic to 70s on 3 L nasal cannula. She had increased work of breathing and examination showed crackles bilaterally. Patient
was placed on nonrebreather which brought oxygen saturation to 95. She was initially admitted to IVU and then transferred to the CVICU this am.
Prior to her most recent admissions, she had been feeling increasing CRAVEN over the past year. More recently she has had 2 pillow orthopnea, increasing peripheral edema over past two weeks, decreased appetite and nausea. She has followed regularly
with Dr. Brito and was transferring care to Dr. Christian. Her most recent echo prior to her hospitalizations was in May and at that time it was notable for EF 65%, Grade 2 diastolic dysfunction, moderate MAC, mild MR, mild mitral stenosis and
severe aortic stenosis with a PG/M.7/45.6, SEVERO: 0.7.
Past Medical History
Past Medical History: Atrial Fib (h/o ablation, not on anticoagulation), CHF, CVA/TIA (h/o TIA about 10 years ago, no residual), CRAVEN, GERD, HTN, Hypercholesterolemia, Hypothyroidism, IDDM, Renal Insufficiency, Valvular Disease (Severe , Moderate
MAC, mild mitral stenosis with mild MR, Mild TR) and Other
Bilateral carotid disease, PVD, obesity, Lumbosacral disc disease, spinal stenosis, h/o GI bleed, restless leg syndrome, Rheumatoid arthritis, h/o glaucoma
Past Surgical History
Past Surgical History: Cholecystectomy and Other (A-fib ablation 2013, PVI 06/16/2016 lens implants, right shoulder surgery)
Dental History
Upper dentures, own lower teeth. At least 2 years since she has seen a dentist
Family History
Mother: at Age
Father: at Age
Family Medical History: Early CAD
Social History
Alcohol: None
Drug: None
Tobacco: Non-Smoker
Living: With Family (disabled daughter)
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
Allergies
Allergy/AdvReac Type Severity Reaction Status Date / Time
Penicillins Allergy Swelling Verified 06/16/16 07:20
Sulfa (Sulfonamide Allergy Swelling Verified 06/16/16 07:20
Antibiotics)
Home Medications
�Medication �Instructions �Recorded �Confirmed �Type
ascorbic acid (vitamin C) 500 mg 1,000 mg PO DAILY Supplement 06/16/16 06/16/16 History
tablet (Vitamin C)
calcium carbonate (calcium) 500 mg PO BID Supplement 06/16/16 06/16/16 History
cholecalciferol (vitamin D3) 50 2,000 unit PO DAILY Supplement 06/16/16 06/16/16 History
mcg (2,000 unit) tablet
coenzyme [id number] E 100 mg-100 500 mg PO DAILY Supplement 06/16/16 06/16/16 History
unit capsule
cyanocobalamin (vitamin B-12) 1,000 mcg PO DAILY Supplement 06/16/16 06/16/16 History
1,000 mcg tablet
fish oil-dha-epa 1,200 mg-144 2 ea PO BID Supplement 06/16/16 06/16/16 History
mg-216 mg capsule
insulin glargine 100 unit/mL 28 units SC HS Diabetes 06/16/16 06/16/16 History
subcutaneous solution (Lantus
U-100 Insulin)
insulin glargine 100 unit/mL 38 units SC DAILY Diabetes 06/16/16 06/16/16 History
subcutaneous solution (Lantus
U-100 Insulin)
irbesartan 300 mg tablet 300 mg PO DAILY Blood Pressure 06/16/16 06/16/16 History
labetalol 300 mg tablet 300 mg PO HS Blood Pressure 06/16/16 06/16/16 History
labetalol 300 mg tablet 600 mg PO DAILY Blood Pressure 06/16/16 06/16/16 History
lansoprazole 30 mg capsule,delayed 30 mg PO DAILY GERD 06/16/16 06/16/16 History
release
lisinopril 20 mg tablet 20 mg PO BID Blood Pressure 06/16/16 06/16/16 History
multivitamin with minerals-ferrous 1 ea PO DAILY Supplement 06/16/16 06/16/16 History
sulfate 4.5 mg iron tablet (One
Daily Multivitamins with Minerals)
nateglinide 120 mg tablet (Starlix) 120 mg PO TID Diabetes 06/16/16 06/16/16 History
nifedipine 90 mg tablet,extended 90 mg PO DAILY Blood Pressure 06/16/16 06/16/16 History
release
simvastatin 20 mg tablet 20 mg PO QPM High Cholesterol 06/16/16 06/16/16 History
apixaban 5 mg tablet (Eliquis) 5 mg PO BID Blood Clot 08/10/24 History
Prevention/Tx
metformin 500 mg tablet 1,000 mg PO DAILY Diabetes 08/10/24 History
metformin 500 mg tablet 500 mg PO BID@1200,1700 Diabetes 08/10/24 History
STS%
STS %: 16.7%
Review of Systems
-
History Source: Patient
HEENT: Reports No Symptoms
Respiratory: Reports SOB, CRAVEN (progressive over past year), Cough and Other (recent 2 pillow orthopnea)
Cardiac: Reports Nausea (past week and a half) and Edema (bilateral lower extremities, worsening over past 2 weeks)
Abdomen/GI: Reports Nausea and Other (poor appetites and epigastric pain)
: Reports No Symptoms; Denies Dysuria, Frequency or Hematuria
Musculoskeletal: Reports Edema (bilateral LE)
Skin: Reports No Symptoms
Neurological: Reports TIA (h/o about 10 years ago )
Vascular: Reports No Symptoms
Physical Exam
Vital Signs
Temp 97.5 F 08/10/24 08:00
Temp route: Axillary 08/10/24 08:00
Pulse 82 08/10/24 10:00
Rhythm: Normal sinus rhythm 08/10/24 08:47
With- Bundle Branch Block Confi 08/09/24 21:00
Resp Rate 31 08/10/24 10:00
Blood pressure 121/49 08/10/24 08:00
Blood pressure extremity used: Left upper arm 08/10/24 08:00
Position: Sitting 08/10/24 08:00
MAP (cuff-[place]al[place] Monitor) 71 08/10/24 08:00
SaO2 98 08/10/24 10:00
Nasal Cannula flow liters per minute 6 08/09/24 19:42
Oxygen Mode of Delivery BiPAP 08/10/24 09:30
Other oxygen comment 14/5 08/10/24 09:30
Flow liters per minute # 8 08/10/24 04:44
% Oxygen delivered 50 08/10/24 09:30
Can the patient verbally communicate their pain? Yes 08/10/24 08:47
Actual Weight 76.5 kg 08/10/24 06:00
Body Mass Index (BMI) 0.0 08/10/24 06:53
Labs
08/10/24 05:13
Troponin I 0.554 ng/ml H* D 08/10/24 05:13
Troponin I Cancelled 08/10/24 05:13
Arterial Blood Gases
pH 7.27 (7.35-7.45) L 08/10/24 09:15
pCO2 63 mmHg (32-35) H 08/10/24 09:15
pO2 94 mmHg (83-108) 08/10/24 09:15
HCO3 28.9 mmol/L (21-28) H 08/10/24 09:15
Base Excess 1.6 mmol/L 08/10/24 09:15
ABG O2 Sat (Measured) 99.5 % (94-98) H 08/10/24 09:15
O2 Delivery Level 08/10/24 09:15
Diagnostic Studies
07/25/2024 Cardiac Catheterization at [facility]:
1. Severe aortic stenosis with a mean gradient of 50mmHg and a calculated SEVERO of 0.70
2. Mild non-obstructive CAD
3. Severe pulmonary HTN, mild to moderately elevated wedge and left ventricular end diastolic pressures, with otherwise normal left and right heart catheterization pressures.
08/10/2024 Echocardiogram:
CONCLUSIONS
Normal biventricular size and systolic function without regional wall motion
abnormality.
Heavily calcified mitral valve and apparatus. Severe mitral stenosis.
Severe aortic stenosis.
Severe pulmonary hypertension.
Pleural effusion noted.
Compared to the prior, 05/04/2024, gradient across the mitral valve has
increased. Pulmonary pressure has increased from 24 mmHg to 75 mmHg. Pleural
effusion is noted now now noted. Aortic stenosis remains severe.
Indications:
heart failure
Rhythm: Sinus
Portable Study: Yes
Technical Quality: Technically difficult but
adequate for interpretation
Contrast: None
BP: 109 / 56
PROCEDURE
A complete Transthoracic Echocardiogram was performed utilizing two-dimensional
evaluation with color flow and spectral Doppler analysis.
FINDINGS
Left Ventricle
Normal left ventricular size, wall thickness and systolic function. No regional
wall motion abnormalities are seen. LV ejection fraction is 55-60% by Chase's
method of discs. Diastolic function indeterminate due to severe MAC.
Right Ventricle
Right ventricle not well visualized.
Left Atrium
Moderately dilated left atrium. Indexed LA volume is moderately abnormal (42-48
mL/m2).
Right Atrium
Normal right atrial size.
Mitral Valve
Heavily calcified mitral valve and apparatus. Severe mitral stenosis.
Peak/mean gradients across the mitral valve are 30/12 mmHg, respectively. Mild
mitral regurgitation.
Aortic Valve
Thickened, trileaflet aortic valve with restricted leaflet motion. Severe
aortic stenosis. Peak/mean gradients across the aortic valve are 74/55 mmHg,
respectively. Using an LVOT diameter of 2.1 cm the aortic valve by the
Continuity equation is calculated at 0.6 cm2. No aortic regurgitation is seen.
Tricuspid Valve
Tricuspid valve opens normally. Moderate tricuspid regurgitation. Estimated
pulmonary artery pressure of 75 mmHg assuming a right atrial pressure of 15
mmHg.
Pulmonic Valve
Pulmonic valve opens normally. Mild pulmonic regurgitation.
Pericardium\\Pleura
No pericardial effusion. Pleural effusion present.
Aorta
The aortic root is normal in caliber. Suboptimal suprasternal notch view.
Other Finding
The IVC is dilated and does not collapse. In limited views, there is no clear
evidence of shunting via color flow Doppler. No intracardiac mass or thrombus
formation seen.
MEASUREMENTS (Male / Female) Normal Values
2D ECHO
LV Diastolic Diameter PLAX 5.1 cm 4.2 - 5.9 / 3.9 - 5.3 cm
LV Systolic Diameter PLAX 3.5 cm
IVS Diastolic Thickness 1.0 cm 0.6 - 1.0 / 0.6 - 0.9 cm
LVPW Diastolic Thickness 1.0 cm 0.6 - 1.0 / 0.6 - 0.9 cm
LV Relative Wall Thickness 0.4
LVOT Diameter 2.1 cm
LA Systolic Diameter LX 4.7 cm 3.0 - 4.0 / 2.7 - 3.8 cm
LV Ejection Fraction MOD BP 57.5 % >= 55 %
LV Stroke Volume MOD BP 43.8 cm3
LV Cardiac Index MOD BP 1573.1 cm3/min
LV Stroke Volume MOD 4C 47.0 cm3
LV Stroke Volume 4C AL 49.8 cm3
LV Stroke Volume MOD 2C 35.3 cm3
LV Stroke Volume 2C AL 37.2 cm3
LA Area 4C View 28.5 cm2 <= 20 cm2
LA Length 4C 6.4 cm
LA Volume 99.3 cm3 18 - 58 / 22 - 52 cm3
LA Volume Index 45.6 cm3/m2 16 - 34 cm3/m2
RV Diastolic Basal Diameter 4.6 cm 2.0 - 2.8 cm
Aorta at Sinotubular Diameter 2.7 cm
Ascending Aorta Diameter 3.8 cm
Aorta at Sinuses Diameter 3.5 cm
M-MODE
AV Cusp Separation MM 0.4 cm
DOPPLER
AV Peak Velocity 431.0 cm/s
AV Peak Gradient 74.3 mmHg
AV Mean Gradient 55.0 mmHg
AV Velocity Time Integral 111.6 cm
LVOT Peak Velocity 79.3 cm/s
LVOT Peak Gradient 2.5 mmHg
LVOT Velocity Time Integral 20.0 cm
LVOT Stroke Volume 69.3 cm3
LVOT Stroke Volume Index 36.6 ml/m2 empty
LVOT Cardiac Index 2488.0 cm3/min\\m2
AV Area Cont Eq vti 0.6 cm2
AV Area Cont Eq pk 0.6 cm2
MV Peak Velocity 280.3 cm/s
MV Peak Gradient 31.4 mmHg
MV Mean Velocity 158.7 cm/s
MV Mean Gradient 11.3 mmHg
MV Area PHT 2.1 cm2
Mitral E Point Velocity 223.5 cm/s
Mitral A Point Velocity 163.0 cm/s
Mitral E to A Ratio 1.4
LV E' Lateral Velocity 3.3 cm/s
Mitral E to LV E' Lateral Ratio 68.6
LV E' Septal Velocity 3.6 cm/s
Mitral E to LV E' Septal Ratio 62.3
TR Peak Velocity 387.0 cm/s
TR Peak Gradient 59.9 mmHg
Exam
General: Well Developed, Well Nourished and Respiratory Distress (mild)
HEENT: Normocephalic, PERRLA and EOMI
Respiratory: Crackles (course bilaterally) and Accessory Muscle Use
Cardiac: Regular Rhythm and Murmur (Grade III/ systolic murmur)
GI: Soft, Non Tender, Non Distended and Normal Bowel Sounds
Rectal: Deferred by Provider
Skin: Warm and Dry
Neuro: AO x 3 and Nonfocal/Grossly Intact
Extremities: Lower Level Edema (+2 bilateral LE pitting edema) and Pulses (pedal pulses by doppler)
Psych: Calm
Assessment / Plan
-
Procedure Type:�Isolated AVR
PERIOPERATIVE OUTCOME ESTIMATE %
Operative Mortality 16.7%
Morbidity & Mortality 50.3%
Stroke 7.28%
Renal Failure 17.5%
Reoperation 5.24%
Prolonged Ventilation 39.2%
Deep Sternal Wound Infection 0.088%
Long Hospital Stay (>14 days) 45.2%
Short Hospital Stay (<6 days)* 4.34%
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
discharge. Plan was to transfer to for urgent TAVR evaluation but patient presents with multiple medical issues that may delay this work up. Will continue to have discussions with heart team on plan.
#Severe aortic stenosis
-Mean gradient 55mmHg on echocardiogram completed this morning with SEVERO 0.6
-Will need CT TAVR to evaluate valve, access and coronary heights
-Dental clearance - last dental visit 2 years- Consult Dr. Menendez once patient can tolerate being on nasal cannula, will need pannelipse
-Diurese per cardiology recommendations.
-discuss with Heart team TAVR vs SAVR/MVR given both severe aortic stenosis and mitral stenosis
#Severe Mitral Stenosis
-Heavily calcified MV, PG/M/12
-discuss with Heart team
#GINGER on CKD versus cardiorenal syndrome
-nephrology following
-Will need to discuss timing of TAVR CT given need for contrast and current renal function.
#Hyperkalemia
-nephrology consulted
-Initially treated by primary service on admission
-follow BMP
#Hyponatremia
-most likely due to hypervolemia
-Diurese per cardiology/nephrology
-Daily weights
-I&O
#Anemia
-no acute bleeding noted
-follow CBC
-primary service to follow and treat as needed
Paroxysmal atrial fibrillation
-Prior flutter ablation in 2013 (K[facility], Dr. Berry at [facility]) and then fibrillation in 2016 ([facility])
-Stable in sinus rhythm
-Oral Anticoagulation: None, she had a nosebleed on Pradaxa
-[id number]: score at least 9 (Heart failure, HTN, age 75 or more, prior Stroke/TIA, DM, Vascular disease, female gender)
Data Reviewed
-
EKG: Report Reviewed by me
Air Pumper: Report Reviewed by me
Echo: Report Reviewed by me
Labs: Labs Reviewed by me, Discussed with Physician and Discussed with Patient
Old Records: Reviewed
Critical Care Time (in minutes): 50
Total Time Spent with Patient (in minutes): 25
[2024-08-10 12:10] LABS: Glycohemoglobin (HgbA1c) 5.5 % (4.0-5.6)
[2024-08-10] MEDS: PROTONIX IV 40 MG IV (12:13)
[2024-08-10] MEDS: NSS (PRESERVATIVE FREE) 10 ML IV (12:13)
--- NOTE | 2024-08-10 12:32 | PTCARENOTE ---
Assessment unchanged; NSR on monitor and VSS; Echo done and labs taken; family at bedside and pt resting comfortably in bed.
[2024-08-10 13:13] LABS: Blood Urea Nitrogen 70 mg/dl (7-17); Calcium 8.8 mg/dl (8.4-10.2); Carbon Dioxide 28 mmol/L (22-30); Chloride 92 mmol/L (98-107); Estimated Creatinine Clearance 23 ml/min; Glucose 152 mg/dl (70-99); Potassium 5.6 mmol/L (3.5-5.1); Sodium 127 mmol/L (135-145); eGFR 27.44
[2024-08-10 13:15] LABS: Troponin I 0.705 ng/ml
[2024-08-10] MEDS: LASIX 80 MG IV ×2 (13:20→16:41)
--- NOTE | 2024-08-10 13:42 | CON.INTV ---
Consultation
Consultation Request
Date/Time Consultation Requested: 08/10/2024
Date/Time Consultation Performed: 08/10/2024
Requesting Provider:
Performing Provider: Dr.Manuel Foote
Reason for Consultation: Acute hypoxemic and hypercapnic respiratory failure.
Medical History
-
History of Present Illness:
84-year-old woman with past medical history significant for aortic stenosis, mitral valve disease, hypertension, heart failure with preserved ejection fraction, nonobstructive coronary artery disease, paroxysmal atrial fibrillation, type 2 diabetes
who presented from [facility] for shortness of breath where she was found to have heart failure and also was being treated for pneumonia given abnormal chest x-ray. Transferred to [facility] for TAVR evaluation.
Apparently recently admitted for same symptoms.
This time readmitted with hypoxemic respiratory failure, ABG with acute hypercapnia.
Patient required noninvasive mechanical ventilation.
Leukocytosis is present but patient denies any purulent sputum production, fevers, chills or hemoptysis.
She was placed on antibiotics.
She was also discovered to have acute kidney injury with hyperkalemia. Per prior records patient has been receiving Lokelma on discharge from the hospital with a potassium of 5.3.
-
Currently in the critical care unit, requiring noninvasive mechanical ventilation. States that work of breathing has decreased but is still labored.
Pulse ox is 100%.
She denies any chest pain.
Past Medical History
Past Medical History: Other (See assessment and plan)
Social History
Tobacco: Non-smoker
Alcohol: None
Drug: None
Living: With Family
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
Family History
Family History: Reviewed & Not Pertinent
Allergies / Home Medications
Allergies
Allergy/AdvReac Type Severity Reaction Status Date / Time
Penicillins Allergy Swelling Verified 06/16/16 07:20
Sulfa (Sulfonamide Allergy Swelling Verified 06/16/16 07:20
Antibiotics)
Home Medications
�Medication �Instructions �Recorded �Confirmed �Last Taken �Type
ascorbic acid (vitamin C) 500 mg 1,000 mg PO DAILY Supplement 06/16/16 06/16/16 06/15/16 08:30 History
tablet (Vitamin C)
calcium carbonate (calcium) 500 mg PO BID Supplement 06/16/16 06/16/16 06/15/16 08:30 History
cholecalciferol (vitamin D3) 50 2,000 unit PO DAILY Supplement 06/16/16 06/16/16 06/15/16 08:30 History
mcg (2,000 unit) tablet
coenzyme W50-brzpyym E 100 mg-100 500 mg PO DAILY Supplement 06/16/16 06/16/16 06/15/16 08:30 History
unit capsule
cyanocobalamin (vitamin B-12) 1,000 mcg PO DAILY Supplement 06/16/16 06/16/16 06/15/16 08:30 History
1,000 mcg tablet
fish oil-dha-epa 1,200 mg-144 2 ea PO BID Supplement 06/16/16 06/16/16 06/15/16 08:30 History
mg-216 mg capsule
insulin glargine 100 unit/mL 28 units SC HS Diabetes 06/16/16 06/16/16 06/15/16 20:00 History
subcutaneous solution (Lantus
U-100 Insulin)
insulin glargine 100 unit/mL 38 units SC DAILY Diabetes 06/16/16 06/16/16 06/15/16 07:30 History
subcutaneous solution (Lantus
U-100 Insulin)
irbesartan 300 mg tablet 300 mg PO DAILY Blood Pressure 06/16/16 06/16/16 06/16/16 05:30 History
labetalol 300 mg tablet 300 mg PO HS Blood Pressure 06/16/16 06/16/16 06/15/16 20:00 History
labetalol 300 mg tablet 600 mg PO DAILY Blood Pressure 06/16/16 06/16/16 06/16/16 05:30 History
lansoprazole 30 mg capsule,delayed 30 mg PO DAILY GERD 06/16/16 06/16/16 06/15/16 08:30 History
release
lisinopril 20 mg tablet 20 mg PO BID Blood Pressure 06/16/16 06/16/16 06/15/16 08:30 History
multivitamin with minerals-ferrous 1 ea PO DAILY Supplement 06/16/16 06/16/16 06/15/16 08:30 History
sulfate 4.5 mg iron tablet (One
Daily Multivitamins with Minerals)
nateglinide 120 mg tablet (Starlix) 120 mg PO TID Diabetes 06/16/16 06/16/16 06/16/16 05:30 History
nifedipine 90 mg tablet,extended 90 mg PO DAILY Blood Pressure 06/16/16 06/16/16 06/16/16 05:30 History
release
simvastatin 20 mg tablet 20 mg PO QPM High Cholesterol 06/16/16 06/16/16 06/15/16 20:00 History
apixaban 5 mg tablet (Eliquis) 5 mg PO BID Blood Clot 08/10/24 Unknown History
Prevention/Tx
metformin 500 mg tablet 1,000 mg PO DAILY Diabetes 08/10/24 Unknown History
metformin 500 mg tablet 500 mg PO BID@1200,1700 Diabetes 08/10/24 Unknown History
Review of Systems
-
History Source: Patient
All other systems: Negative unless noted
Vitals / Labs / Diagnostic Testing
Vital Signs
Temp Pulse Resp BP Pulse Ox
97.5 F 74 22 103/48 98
08/10/24 08:00 08/10/24 13:20 08/10/24 13:20 08/10/24 13:00 08/10/24 13:20
Lab Data
08/10/24 05:13
08/10/24 12:28
Laboratory Results
08/09/24 08/10/24 08/10/24
23:25 07:15 09:15
pH 7.26 L 7.27 L 7.27 L
pCO2 59 H 64 H 63 H
pO2 69 L 93 94
HCO3 26.5 29.4 H 28.9 H
O2 Delivery Level 8l
Microbiology
08/10/24 05:04 Nose Nasal Screen MRSA (PCR) - Final
MRSA not detected - performed by PCR methodology.
Diagnostic Testing:
Physical Exam
-
HEENT: Normocephalic
Cardiovascular: Murmur
Respiratory: Rales
GI: Soft and Non Distended
Neurology: Awake, Alert, AO x 3 and No Motor Deficits
Skin: Warm
General: Comfortable
Assessment
-
84-year-old woman with past medical history noted, transferred from outside hospital for evaluation of TAVR. Admitted with hypoxemia and shortness of breath. Found to be hypercapnic and acute kidney injury with hyperkalemia.
Currently requiring noninvasive mechanical ventilation for increased work of breathing
Acute hypoxemic and hypercapnic respiratory failure.
Chest x-ray: Bilateral parenchymal opacification suspicion for pulmonary edema.
Acute on chronic heart failure-severe valvulopathy
Leukocytosis likely reactive
Anemia-unclear etiology.
No evidence for acute bleeding.
Acute kidney injury-likely cardiorenal syndrome
Hyperkalemia
Condition present on admission:
Paroxysmal atrial fibrillation
Hypertension
Hypercholesterolemia
Severe aortic stenosis
History of TIA
History of chronic kidney disease
Bilateral carotid disease
Type 2 diabetes
Never smoker
Echocardiogram 08/10/2024: Normal biventricular size and function. Severe mitral stenosis. Severe aortic stenosis. Severe pulmonary hypertension.
Assessment and plan:
Patient is critically ill with acute hypoxemic and hypercapnic respiratory failure requiring noninvasive mechanical ventilation. Likely due to acute heart failure with pulmonary edema.
Echocardiogram this admission with severe aortic stenosis and severe mitral stenosis with severe pulmonary hypertension.
Pulmonary hypertension likely postcapillary, in view of echocardiogram.
-
Agree with cardiac management
Diuretics
Cardiology to evaluate patient as she was transferred here for possible TAVR.
Mild troponin leak, trend.
Patient denies any chest pain-echocardiogram with normal LVEF. 08/10/2024
Eventually to restart anticoagulants
Currently medications limited due to acute kidney injury.
Continue aspirin
-
Infiltrates more consistent with pulmonary edema.
Leukocytosis could be reactive-currently afebrile
Given severity of illness not unreasonable to continue antibiotics for additional 24 hours
Infectious disease was consulted by primary team.
Follow cultures
MRSA screening negative so far.
-
Continue noninvasive mechanical ventilation, pressures adjusted 15/5 with a backup pressure of 14.
Patient alert and following commands. States that she feels more comfortable with noninvasive mechanical ventilator.
Patient denies previous history of pulmonary disease. Never smoker
Repeat ABG later today.
Not bronchospastic on exam
Avoid sedatives
-
Acute kidney injury with hyperkalemia-cardiorenal suspected
Follow BMP later,
Continue IV diuretics-Bey in place. Poor urinary output at this point.
Nephrology following the patient
-
Anemia: Unclear etiology. Unknown baseline. Last hemoglobin in our system in 2015 was 9.6.
So far no evidence for bleeding.
Management per primary team.
Patient has been on anticoagulation.
Continue to follow, transfusion may be needed.
Anemia likely contributing to symptomatology as well.
-
Continue with glycemic control with insulin.
Target blood glucose 100 4180
-
DVT prophylaxis: SCDs.
Restart anticoagulation hopefully soon once able to take orals.
-
Critical care statement: A total of 38 minutes of critical care time was provided for this patient today. This includes management of unstable vital signs, evaluation of the patient at bedside, reviewing the patient's pertinent medical records
including ventilator settings, arterial blood gases, radiographs, microbiology, laboratory evaluations and discussion with primary team, critical care nursing, and respiratory therapy.
--- NOTE | 2024-08-10 13:56 | CON.ID ---
Addendum entered and electronically signed by Katia Barboza MD 08/10/24 18:49:
I personally performed a history and physical exam of the patient and discussed management with the resident. I reviewed the resident's note and agree with the documented findings and plan of care HPI/CC.
Reviewed outside records and history obtained from pt and family. 84 year old female with DM, pAfib, HFpEF, severe recently admitted to [facility] 07/25 with acute CHF, hypoxia. She was diuresed and discharged on 08/07, but readmitted 08/08 at [facility] with
worsening SOB, LE edema. Pt remained hypoxic. WBC 18. CXR pulm edema. She was started on Vancomycin and cefepime for possible PNA. Pt then transferred to 08/09 for TAVR evaluation. Afebrile. WBC 20.8. Pt reports she is still SOB. + cough
productive of mucous/phlegm. No fever or chills. No urinary symptoms. She complains of abdominal bloating/gas for the past 3 days. No diarrhea. + nausea.
Exam: No acute distress
Lungs: bilateral diffuse rales
CV RRR, S1, S2, 4/6 harsh systolic murmur RUSB
Abd normal bowel sound, soft, nontender, nondistended
: no CVA tenderness
Ext: 3+ edema bilaterally
A/P
# Acute CHF due to severe aortic stenosis
# Leukocytosis - reactive
- Outside blood cx's neg to date
-Extremely low suspicion for superimposed PNA
CXR personally reviewed consistent with pulm edema
-DC Vancomycin/cefepime (d3)
- Trend wbc
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
DM
Atrial fibrillation/flutter s/p ablation, not on anticoagulation
HFpEF
TIA
bilateral carotid disease
Hypertension
Hypercholesterolemia
Urinary incontinence
Right shoulder arthroplasty
Cholecystectomy
Original Note:
Consultation
-
Date/Time Consultation Requested: 08/10/2024
Date/Time Consultation Performed: 08/10/2024
Requesting Provider: Sindy Wolf MD
Performing Provider: Katia Barboza MD
Reason for Consultation: Bilateral pneumonia
Chief Complaint / Past History
Chief Complaint
Shortness of breath
History of Present Illness
This is an 84-year-old female with past medical history of severe aortic stenosis, hypertension, HFpEF, PAF s/p ablation, T2DM presented to ER as a transfer from [facility]. Patient was at [facility] for shortness of
breath which was found to have CHF exacerbation thought to be related to her severe arctic stenosis. In addition, while she was at [facility], she was diagnosed with possible bilateral pneumonia and started on vancomycin and cefepime.
She she was transferred to yesterday evening 08/09 for TAVR evaluation. On presentation to the ED, patient was afebrile, normotensive and hypoxic. Laboratory showed WBC 20.8. Evaluation with a chest x-ray showed Bilateral parenchymal
opacification suspicious for pulmonary edema, less likely pneumonitis. Sputum and blood cultures were obtained from her hospital stay at [facility]. Contacted [facility], Blood culture preliminary negative x2.
At bedside today, patient denies fever, chills. She states she has abdominal discomfort. Denies diarrhea. Denies urinary symptoms. Denies headache.
Past History
Past Medical History: Other (Atrial fibrillation, status post ablation), CAD, COPD, HTN, Hypercholesterolemia, IDDM and Valvular Disease (Severe aortic stenosis, mitral valve stenosis))
Allergy History:
Penicillins Allergy (Verified 06/16/16 07:20)
Swelling
Sulfa (Sulfonamide Antibiotics) Allergy (Verified 06/16/16 07:20)
Swelling
Medications Reviewed: Yes
Current Antibiotics:
Cefepime
Vancomycin
Social History
Tobacco: Non-Smoker
Alcohol: None
Drug: None
Personal:
Living: With Family
Review of Systems
Review of Systems
General: Negative Fever or Chills
Respiratory: Dyspnea
Gasteroenterology: Nausea
Vital Signs
Temp Pulse Resp BP Pulse Ox
98.2 F 74 22 103/48 98
08/10/24 12:48 08/10/24 13:20 08/10/24 13:20 08/10/24 13:00 08/10/24 13:20
Physical Exam
Physical Exam
Constitutional: Acutely Ill
Eyes: No Conjunctival Hemorrhage
Cardiovascular: Regular Rate and S1/S2
Pulmonary: Wheezes
Gastrointestinal: Soft and Non Distended
Extremities: Edema (Bilateral LE pitting edema)
Neurological: AO x 3
Lab / Diagnostic Study Results
08/10/24 05:13
08/10/24 12:28
Microbiology Results
Micro:
08/10/24 05:04 Nasal Screen MRSA (PCR) - Final
Nose MRSA not detected - performed by PCR methodology.
CXR 08/10/2024; Bilateral parenchymal opacification suspicious for pulmonary edema, less likely pneumonitis.
Assessment / Plan
Assessment/plan
#Acute on Chronic HFpEF likely secondary to below
#Severe aortic stenosis
#GINGER
-Etiology Non-infectious
-She was continued on abx regimen from previous hospital Vanc and cefepime
-Symptoms are most likely due to CHF exacerbation.
-Will d/c all abx at this time.
-Contacted [facility], Blood cultures negative. Sputum culture pending.
-Monitor WBC, temperature
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
Atrial fibrillation/flutter not on anticoagulation
TIA
Right bilateral carotid disease
Hypertension
Hypercholesterolemia
--- NOTE | 2024-08-10 14:03 | W.CON.NEPH ---
Consultation
-
Date/Time Consultation Requested: 08/10/2024 9 AM
Date/Time Consultation Performed: 08/10/2024 11 AM
Requesting Provider: Dr. Wolf
Performing Provider: Dr. Maddox
Reason for Consultation: GINGER, hyperkalemia
Medical History
-
Chief Complaint: Transfer from [facility]
History of Present Illness:
This is an 84-year-old female who has paroxysmal atrial fibrillation with ablation, TIA, heart failure with preserved ejection fraction with severe aortic stenosis. She was recently admitted to [facility] and then transferred to
[place] for consideration of TAVR. She says that she has been in the hospital as well 2 weeks ago with shortness of breath and fatigue. She was diuresed with Lasix. There was also concern for pneumonia and she was treated with antibiotics for
her leukocytosis and shortness of breath. Her creatinine during that admission was as high as 1.5. On arrival at [place] she was hypoxic requiring BiPAP. There is suspicion that she was severely volume overloaded. She also had significant
hyperkalemia with potassium greater than 6. Her creatinine currently is 1.8 representing further acute kidney injury. She is critically ill in the CVICU
Past Medical History
Cholecystectomy, , atrial fibrillation, ablation, CAD, COPD, hypertension, hyperlipidemia, diabetes mellitus type II, severe aortic stenosis, spinal stenosis
Social History
Tobacco: Non-Smoker
Alcohol: None
Family History
Family History: Not Pertinent
Allergies / Home Medications
Allergy/AdvReac Type Severity Reaction Status Date / Time
Penicillins Allergy Swelling Verified 06/16/16 07:20
Sulfa (Sulfonamide Allergy Swelling Verified 06/16/16 07:20
Antibiotics)
�Medication �Instructions �Recorded �Confirmed �Type
ascorbic acid (vitamin C) 500 mg 1,000 mg PO DAILY Supplement 06/16/16 08/10/24 History
tablet (Vitamin C)
calcium carbonate (calcium) 500 mg PO BID Supplement 06/16/16 08/10/24 History
cholecalciferol (vitamin D3) 50 2,000 unit PO DAILY Supplement 06/16/16 08/10/24 History
mcg (2,000 unit) tablet
coenzyme S58-romopbo E 100 mg-100 500 mg PO DAILY Supplement 06/16/16 08/10/24 History
unit capsule
cyanocobalamin (vitamin B-12) 1,000 mcg PO DAILY Supplement 06/16/16 08/10/24 History
1,000 mcg tablet
fish oil-dha-epa 1,200 mg-144 2 ea PO BID Supplement 06/16/16 08/10/24 History
mg-216 mg capsule
insulin glargine 100 unit/mL 38 units SC DAILY Diabetes 06/16/16 06/16/16 History
subcutaneous solution (Lantus
U-100 Insulin)
insulin glargine 100 unit/mL 40 units SC HS Diabetes 06/16/16 08/10/24 History
subcutaneous solution (Lantus
U-100 Insulin)
irbesartan 300 mg tablet 300 mg PO DAILY Blood Pressure 06/16/16 06/16/16 History
labetalol 300 mg tablet 300 mg PO DAILY Blood Pressure 06/16/16 08/10/24 History
labetalol 300 mg tablet 300 mg PO HS Blood Pressure 06/16/16 08/10/24 History
lansoprazole 30 mg capsule,delayed 30 mg PO DAILY GERD 06/16/16 08/10/24 History
release
lisinopril 20 mg tablet 20 mg PO BID Blood Pressure 06/16/16 06/16/16 History
multivitamin with minerals-ferrous 1 ea PO DAILY Supplement 06/16/16 08/10/24 History
sulfate 4.5 mg iron tablet (One
Daily Multivitamins with Minerals)
nateglinide 120 mg tablet (Starlix) 120 mg PO TID Diabetes 06/16/16 08/10/24 History
nifedipine 90 mg tablet,extended 60 mg PO HS Blood Pressure 06/16/16 08/10/24 History
release
simvastatin 20 mg tablet 20 mg PO QPM High Cholesterol 06/16/16 06/16/16 History
apixaban 5 mg tablet (Eliquis) 5 mg PO BID Blood Clot 08/10/24 08/10/24 History
Prevention/Tx
metformin 500 mg tablet 1,000 mg PO DAILY Diabetes 08/10/24 History
metformin 500 mg tablet 500 mg PO BID@1200,1700 Diabetes 08/10/24 History
Review of Systems
-
Shortness of breath. No chest pain. Worsening lower extremity edema
All other systems: Negative unless noted
Physical Exam
Vital Signs
Vital Signs
Temp Pulse Resp BP Pulse Ox
98.2 F 74 22 103/48 98
08/10/24 12:48 08/10/24 13:20 08/10/24 13:20 08/10/24 13:00 08/10/24 13:20
Lab Results
WBC 18.1 10^3/uL (4.8-10.8) H 08/10/24 05:13
RBC 2.71 10^6/uL (4.20-5.40) L 08/10/24 05:13
Hgb 7.8 g/dL (12.0-16.0) L 08/10/24 05:13
Hct 24.5 % (37.0-47.0) L 08/10/24 05:13
Plt Count 211 10^3/uL (130-400) 08/10/24 05:13
Sodium 127 mmol/L (135-145) L 08/10/24 12:28
Potassium 5.6 mmol/L (3.5-5.1) H 08/10/24 12:28
Chloride 92 mmol/L (98-107) L 08/10/24 12:28
Carbon Dioxide 28 mmol/L (22-30) 08/10/24 12:28
BUN 70 mg/dl (7-17) H 08/10/24 12:28
Creatinine 1.8 mg/dL (0.6-1.0) H 08/10/24 12:28
eGFR 27.44 08/10/24 12:28
Glucose 152 mg/dl (70-99) H 08/10/24 12:28
Calcium 8.8 mg/dl (8.4-10.2) 08/10/24 12:28
Phosphorus 6.2 mg/dl (2.5-4.5) H 08/10/24 00:50
Albumin 3.9 g/dl (3.5-5.0) 08/10/24 00:50
Laboratory Tests
08/10/24
00:50
Potassium 6.2 H*
Creatinine 1.5 H
Physical Exam
Patient is awake alert oriented and in no distress. Mood and affect were pleasant, insight and judgment were good. Pupils are equal round and reactive to light, extraocular movements are intact, sclera were anicteric. Hearing was normal, ears and
nose are intact. Oropharynx was clear. Neck was supple with trachea midline and no thyromegaly. Heart was regular rate and rhythm without rubs. Lower extremities with 3+ edema. Lungs were with rales to auscultation bilaterally and with normal
excursion. Abdomen was soft, nontender, with normal active bowel sounds, and no hepatosplenomegaly. Skin was without rash and with normal turgor.
Data Reviewed
-
Radiology: Image Personally Visualized and interpreted (Chest x-ray on 08/10/2024 by my reading shows bilateral opacification likely edema)
Medical Tests (Nuc Med, Echo etc): Image Personally Visualized and interpreted (EKG on 08/09/2024 by my reading shows normal sinus rhythm left axis deviation left ventricular hypertrophy) and Report Reviewed by me (Echocardiogram on 08/10/2024 shows
ejection fraction normal, severe aortic stenosis, severe pulmonary hypertension, severe mitral stenosis)
Labs: Labs Reviewed by me
Old Records: Reviewed
Assessment/Plan
-
Assessment.
Severe aortic stenosis
Severe mitral stenosis
Pulmonary hypertension
Pulmonary edema
Acute kidney injury
Hyperkalemia
Leukocytosis
Diabetes mellitus type 2
Paroxysmal atrial fibrillation
Anemia
Hyponatremia
Plan
She requires additional diuresis. Will increase Lasix to 80 mg IV twice daily
Follow BMP
Treat potassium medically
Check iron studies
Follow hemoglobin, transfuse as needed
Antibiotics per primary team
May require right heart catheterization
Critical care time spent 35 minutes
[2024-08-10 14:37] LABS: Vancomycin Random 21.5 ug/ml
--- NOTE | 2024-08-10 15:04 | PTCARENOTE ---
Pt comfortable in bed; respiratory and Dr Foote at bedside BIPAP mask turned off and pt placed on Midflow 12L; NSR on monitor and VSS; assessment unchanged.
[2024-08-10 15:40] LABS: Magnesium 2.8 mg/dl (1.6-2.3)
--- NOTE | 2024-08-10 15:50 | VATNOTE ---
PCN notified that PICC tip is in SVC per radiology report and is OK to use at this time. PCN instructed to remove all ipsilateral IVs and change all IV tubing prior to use.
[2024-08-10] MEDS: DIURIL 0.5 GRAM VIAL 0.5 GRAMS IV (16:42)
[2024-08-10] MEDS: STERILE WATER FOR INJECTION 18 ML IV (16:42)
--- NOTE | 2024-08-10 16:43 | CM ---
spoke to pt in room, she tells me that she is indep, lives with her daughter who is mentally disabled. her niece is taking care of her now. we discussed rehabs and she only wants to go home, however she appears very weak. she did say that she was at
[facility] before for a fx shoulder. cm laina butts pt/ot notes. she has a cpap, cane and a walker she uses. dc remain uncertain at this time. cm following.
[2024-08-10 16:56] LABS: Glucose - Point of Care 135 mg/dl (70-99)
[2024-08-10] MEDS: LIPITOR 40 MG PO (17:15)
--- NOTE | 2024-08-10 19:30 | PTCARENOTE ---
Received pt from previous RN; pt AAOx3 and resting comfortably in bed; NSR on monitor and VSS; Lungs Diminished, Crackles and Coarse throughout; BIPAP placed 16/5, pox 98-100% hypoactive bowel sounds; Bey catheter draining yellow urine; B/L Pedal
pulse present by Doppler; +2 lower extremity edema; skin tear on lower abdomen dressing with small amount of drainage; R double lumen PICC intact, plan of care discussed questions encouraged
--- NOTE | 2024-08-10 21:00 | PTCARENOTE ---
pt having R on T PVCS per tele monitor, EKG and ABG obtained, CTPA Joseph Damon and resp. therapist made aware.
[2024-08-10 21:12] LABS: B.E. 0.4 mmol/L; HCO3 27.8 mmol/L (21-28); Ionized Calcium 1.24 mMOL/L (1.15-1.33); O2 Saturation % 99.1 % (94-98); PCO2 62 mmHg (32-35); PO2 114 mmHg (83-108); Potassium 5.3 mMOL/L (3.5-5.1); pH 7.26 (7.35-7.45)
[2024-08-10] MEDS: LANTUS 0.4 UNITS SC (21:59)
[2024-08-10 22:05] LABS: Glucose - Point of Care 123 mg/dl (70-99)
[2024-08-11] VITALS (17 sets, daily range): BP systolic 92–119; BP diastolic 39–53; BMI 26.3
[2024-08-11 00:34] LABS: B.E. 2.9 mmol/L; HCO3 30.1 mmol/L (21-28); Ionized Calcium 1.26 mMOL/L (1.15-1.33); O2 Saturation % 56.9 % (94-98); PCO2 64 mmHg (32-35); Potassium 5.1 mMOL/L (3.5-5.1); pH 7.28 (7.35-7.45)
[2024-08-11] MEDS: HEPARIN 5000 UNITS SC ×2 (00:39→08:26)
[2024-08-11 00:42] LABS: PO2 30 mmHg (83-108)
[2024-08-11 01:33] LABS: Troponin I 0.857 ng/ml
[2024-08-11 05:40] LABS: B.E. 2.2 mmol/L; Ionized Calcium 1.22 mMOL/L (1.15-1.33); O2 Saturation % 98.5 % (94-98); PCO2 59 mmHg (32-35); PO2 95 mmHg (83-108); Potassium 4.9 mMOL/L (3.5-5.1)
--- NOTE | 2024-08-11 06:00 | PTCARENOTE ---
no acute changes. SR w occasional PACs and PVCs. POX 98-99%. NIV settings unchanged. UO ~30cc/hr. AM labs drawn and sent. pt sleeping between care.
[2024-08-11 06:03] LABS: Blood Urea Nitrogen 81 mg/dl (7-17); Calcium 8.5 mg/dl (8.4-10.2); Carbon Dioxide 31 mmol/L (22-30); Chloride 93 mmol/L (98-107); Estimated Creatinine Clearance 21 ml/min; Glucose 81 mg/dl (70-99); Iron 38 ug/dl (37-170); Magnesium 2.9 mg/dl (1.6-2.3); Sodium 130 mmol/L (135-145); eGFR 24.18
[2024-08-11 06:11] LABS: Percent Saturation 13 % (20-50); Total Iron Binding Capacity 274 ug/dl (265-497)
[2024-08-11 06:35] LABS: % Basophils 0.1 % (0-2); % Immature Granulocytes 0.5 % (0-0.5); % Lymphocytes 5.4 % (20.5-51.1); % Monocytes 4.2 % (1.7-9.3); % Neutrophils 88.8 % (42.2-75.2); Absolute Eosinophils 0.1 10^3/uL (0-0.7); Absolute Immature Granulocytes 0.1 10^3/uL (0-0.05); Absolute Lymphocytes 0.7 10^3/uL (1.2-3.4); Absolute Monocytes 0.6 10^3/uL (0.1-0.6); Absolute Neutrophils 11.9 10^3/uL (1.4-6.5); Hematocrit 21.2 % (37.0-47.0); Hemoglobin 6.6 g/dL (12.0-16.0); Mean Corp Hgb Conc. 31.1 g/dL (33.0-37.0); Mean Corpuscular Hgb 28.6 pg (27.0-31.0); Mean Corpuscular Volume 91.8 fL (81.0-99.0); Mean Platelet Volume 11.6 fL (7.4-10.4); Nucleated Red Blood Cells % 0.2 %; Platelet Count 165 10^3/uL (130-400); Red Blood Cell Count 2.31 10^6/uL (4.20-5.40); Red Cell Dist. Width 16.5 % (11.5-14.5); White Blood Cell Count 13.5 10^3/uL (4.8-10.8)
[2024-08-11 07:08] LABS: Ferritin 49.1 ng/ml (11.1-264.0)
[2024-08-11] MEDS: SPIRIVA RESPIMAT 2.5 MCG 2 PUFF INH (07:22)
--- NOTE | 2024-08-11 08:00 | PTCARENOTE ---
Received pt from night custodian RN; pt AAOx3 and resting comfortably in bed; NSR on monitor and VSS; Right double lumen PICC patent; lungs coarse, diminished and crackles; midflow 12L; hypoactive bowel sounds; Bey catheter draining yellow urine;
lower extremity Doppler pulses present; +2 lower extremity edema noted; sacrum and abdomen dressing C/D/I; see nursing documentation for further details.
[2024-08-11] MEDS: NSS (PRESERVATIVE FREE) 10 ML IV (08:25)
[2024-08-11] MEDS: PROTONIX IV 40 MG IV (08:25)
[2024-08-11] MEDS: LOW STRENGTH ASPIRIN 81 MG PO (08:26)
[2024-08-11] MEDS: LASIX 80 MG IV (08:26)
[2024-08-11 08:39] LABS: Glucose - Point of Care 96 mg/dl (70-99)
[2024-08-11 08:46] LABS: NT-proBNP > 27000 pg/ml
[2024-08-11] MEDS: TRANDATE 100 MG PO (09:12)
--- NOTE | 2024-08-11 09:25 | W.PN.HOSP.TC ---
Addendum entered and electronically signed by Yenny Fry MD 08/12/24 14:15:
# sacrum pressure injury stage 2 present on admission
# Type 2 [place]
Original Note:
Today's Communication/Plan
-
see A/P
Assessment / Plan
Assessment / Plan
HPI: 84-year-old female with past medical history significant for aortic stenosis, mitral regurg, hypertension, CHF, nonobstructive CAD, proximal atrial fibrillation, insulin-dependent diabetes who presented to outside hospital for shortness of
breath where she was found to have CHF exacerbation and possible bilateral pneumonia, initially managed and transferred here for TAVR.
She was apparently recently discharged from the same outside hospital for similar presentation. She reported 1 day of increased dyspnea requiring use of home CPAP and that she had oxygen saturation of 79% on arrival in the emergency department over
there. She was found to be in CHF requiring BiPAP. Due to severe leukocytosis the patient was also started on broad-spectrum antibiotics vancomycin and cefepime. Cultures of the sputum were sent and pending.
Patient has known severe and cardiology recommended evaluation for TAVR, patient was accepted and transferred to . Additional issues during in the admission and is GINGER on CKD.
Her creatinine ranged from 1.5-1.1. At the time of discharge, her creatinine was 1.1 and patient was making urine and responding to Lasix 40 mg daily.
She had elevated troponin which was thought to be nonobstructive myocardial injury. She had persistently elevated potassium requiring multiple doses of Lokelma and was discharged with a potassium level of 5.3.
On arrival here she was afebrile, normotensive but hypoxic to 70s on 3 L nasal cannula. She had increased work of breathing. Examination showed crackles bilaterally. Patient was placed on nonrebreather which brought oxygen saturation to 95. She
was supposed to be on AVAPS at bedtime per records however the settings were not transferred.
She had hyperkalemia on arrival with a potassium of 6.2, EKG without peaked T waves and no acute ischemia, patient temporized. Initial troponin was 0.4.
A/P:
# Acute on chronic hypoxic respiratory failure , clinically unstable
# Acute respiratory acidosis
Cont NIPPV with BIPAP 13/01. She was on AVAPs HS at [facility]
CXR with Bilateral parenchymal opacification suspicious for pulmonary edema, less likely pneumonitis.
IV lasix for acute CHF (see below)
Off empiric antibiotics cefepime and vancomycin per ID, low suspicion for superimposed PNA
IV PPI now BID for GI protection due to critical illness and anemia
# Acute on chronic CHF 2/2 severe and severe MS
# Severe pulmonary hypertension.
cardiology on board
IV lasix, dose increased to 80mg BID by card
patient on labetalol 100 bid w/ hold parameters
# Acute on chronic anemia, likely multifactorial with severe and GINGER/CKD
Hgb 6.6 today, transfuse 1 unit PRBC
Check iron panel, B12, folate level
Hematest if able
Not clinically stable for endoscopy eval at this time, hence would hold off on GI CS
IV PPI BID
# Non-ischemic myocardial injury
Trend trop until peak
continue plavix, aspirin
cardiology on board
# GINGER on CKD ?stage 3, cardiorenal versus ATN
Oliguric since arrival here despite lasix.
SCr 2.0 today from 1.5 on admission
IV lasix as above
Hold ACEI/ARB
nephrology on board
# Hyperkalemia, treated
nephrology consultation
# IDDM
Cont Lantus adjust to 30 units HS,
Cover with sliding scale insulin
# pFIB, rate controlled
Labetalol
not currently anticoagulated
# HTN
BP controlled on Labetalol
Off nifedipine to give more BP room for IV lasix
DVT PPX - hep sq
Code status - full code
DW RN
updated nino Castro on the phone
CC Mx for hypoxic resp failure, CC time 45 min
Anticipated Discharge: > 48 hours
Subjective/Interval History
-
Date of Service: August 11, 2024
Objective Data
-
Labs:
Laboratory Results
08/11/24 08/11/24 08/11/24
00:27 05:31 05:37
WBC 13.5 H
Hgb 6.6 L*
Hct 21.2 L
Plt Count 165 D
HCO3 30.1 H 29.0 H
Sodium 130 L
Potassium 5.0
Chloride 93 L
Carbon Dioxide 31 H
BUN 81 H
Creatinine 2.0 H
Glucose 81
Calcium 8.5
Vital Signs:
Vital Signs
Temp Pulse Resp BP Pulse Ox
36.6 C 80 20 113/52 100
08/11/24 08:00 08/11/24 09:12 08/11/24 08:00 08/11/24 09:12 08/11/24 08:00
I&O
08/10/24 08/11/24 08/12/24
06:59 06:59 06:59
Intake Total 150 / 150
Output Total 175 / 175 740 / 765 75 / 75
Balance -175 / -175 -590 / -615 -75 / -75
Review of Systems
-
Constitutional: Reports Weakness
Respiratory: Reports Trouble Breathing
Physical Exam
-
General: Well Developed, Well Nourished, Comfortable, Respiratory Distress, Conversant and Appears Chronically Ill
HEENT: Normocephalic, Atraumatic, Nose Appears Normal, Ears Appear Normal and Oxygen (BIPAP -> 12L mid flow )
Respiratory: Clear to Auscultation and Non Labored Respirations; Negative Accessory Resp Muscle Use
Cardiac: Regular Rhythm, S1/S2 and Murmur
GI: Soft, Nontender, Nondistended and Normal Bowel Sounds
Skin: Warm and Dry
Neuro: Awake, Alert and Oriented
Psych: Calm and Intact Judgement/Insight
Data Reviewed
-
Diagnostic Radiology: Report Reviewed by me
Labs: Labs Reviewed by me
--- NOTE | 2024-08-11 10:42 | W.PN.NEPH.PH ---
Today's Communication / Plan
-
lasix gtt
Assessment/Plan
-
Assessment.
Severe aortic stenosis
Severe mitral stenosis
Pulmonary hypertension
Pulmonary edema
Acute kidney injury
Hyperkalemia
Leukocytosis
Diabetes mellitus type 2
Paroxysmal atrial fibrillation
Anemia
Hyponatremia
Plan
She requires additional diuresis. We will escalate Lasix to a Lasix drip. Diuril may be given later based on urine output
Follow BMP
Treat potassium medically prn
Iron studies okay
Follow hemoglobin, transfuse
Antibiotics per primary team
Unfortunately diuresis will likely be unsuccessful given both severe mitral and aortic stenosis. It is not likely that TAVR alone will be sufficient. There would need to be a plan for her mitral stenosis as well.
I discussed with her the likelihood of worsening GINGER as well as the possibility of dialysis. She understands the gravity of the situation.
I did not press her for a decision regarding dialysis today but did tell her that she should decide what she would like to do in the future.
Critical care time spent 35 minutes
-
-
Date of Service: August 11, 2024
CC / HPI / ROS
-
Chief Complaint:
GINGER
History of Present Illness:
Remains hypotense
Hgb down to 6.6
GINGER/Cr up to 2.0
hypoxic high supplemental O2NC
oliguric despite lasix
Review of Systems:
no CP
SOB
Labs
-
Labs:
WBC 13.5 10^3/uL (4.8-10.8) H 08/11/24 05:37
RBC 2.31 10^6/uL (4.20-5.40) L 08/11/24 05:37
Hgb 6.6 g/dL (12.0-16.0) L* 08/11/24 05:37
Hct 21.2 % (37.0-47.0) L 08/11/24 05:37
Plt Count 165 10^3/uL (130-400) D 08/11/24 05:37
Sodium 130 mmol/L (135-145) L 08/11/24 05:37
Potassium 5.0 mmol/L (3.5-5.1) 08/11/24 05:37
Chloride 93 mmol/L (98-107) L 08/11/24 05:37
Carbon Dioxide 31 mmol/L (22-30) H 08/11/24 05:37
BUN 81 mg/dl (7-17) H 08/11/24 05:37
Creatinine 2.0 mg/dL (0.6-1.0) H 08/11/24 05:37
eGFR 24.18 08/11/24 05:37
Glucose 81 mg/dl (70-99) 08/11/24 05:37
Calcium 8.5 mg/dl (8.4-10.2) 08/11/24 05:37
Phosphorus 6.2 mg/dl (2.5-4.5) H 08/10/24 00:50
Xve-E-Rygzslagwcy Pept > 24097 pg/ml 08/11/24 00:40
Albumin 3.9 g/dl (3.5-5.0) 08/10/24 00:50
Physical Exam
-
Vital Signs:
Vital Signs
Temp Pulse Resp BP Pulse Ox
97.9 F 80 20 113/52 100
08/11/24 08:00 08/11/24 09:12 08/11/24 08:00 08/11/24 09:12 08/11/24 09:43
Cardiovascular:: Regular rate and rhythm
Respiratory:: Bilateral: Rhonchi
Lung Excursion:: Normal
Abdomen:: Nontender and Soft
Bowel Sounds:: Normal
Extremity Edema:: None: Bilateral:
--- NOTE | 2024-08-11 10:59 | W.PN.ID1 ---
Addendum entered and electronically signed by Katia Babroza MD 08/11/24 15:46:
I saw and evaluated the patient. I reviewed the resident�s note and agree with findings and plan as documented in the resident�s note.
[facility] Dr. Kartik Moore discussed goals of care with patient and family. She is now on comfort measures.
ID will sign off.
Original Note:
Date of Service
Date of Service: August 11, 2024
Today's Communication
.
Assessment / Plan
Assessment/plan
#Acute on Chronic HFpEF likely secondary to below
#Severe aortic stenosis
# Leukocytosis-reactive
-Outside blood cultures negative
-Low suspicion for pneumonia
-Antibiotics has been discontinued since yesterday
-WBC trending down
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
Atrial fibrillation/flutter not on anticoagulation
TIA
Right bilateral carotid disease
Hypertension
Hypercholesterolemia
Chief Complaint
-: Other (Shortness of breath)
Subjective / Review of Systems
Review of Systems: No Fever and No Chills
Vital Signs / Physical Exam
Vital Signs
Vital Signs
Temp Pulse Resp BP Pulse Ox
97.9 F 80 20 113/52 100
08/11/24 08:00 08/11/24 09:12 08/11/24 08:00 08/11/24 09:12 08/11/24 09:43
Physical Exam
Constitutional: No Acute Distress
Cardiovascular: S1/S2
Pulmonary: Rales
Gastrointestinal: Soft, Non Tender and Non Distended
Extremities: Edema (pitting edema b/l)
Neurological: AO x 3
Objective Data
Lab Data
Lab Results
08/11/24 05:37
08/11/24 05:37
Estimated Creat Clear 21 ml/min 08/11/24 05:37
Total Bilirubin 1.3 mg/dl (0.2-1.3) 08/10/24 00:50
AST 30 U/L (14-36) 08/10/24 00:50
ALT 45 U/L (0-35) H 08/10/24 00:50
Alkaline Phosphatase 83 U/L (38-126) 08/10/24 00:50
Most recent labs reviewed.
Micro Results:
08/10/24 05:04 Nasal Screen MRSA (PCR) - Final
Nose MRSA not detected - performed by PCR methodology.
CXR 08/10/2024; Bilateral parenchymal opacification suspicious for pulmonary edema, less likely pneumonitis.
[2024-08-11] MEDS: LASIX 50 IV (11:06)
--- NOTE | 2024-08-11 11:29 | PTCARENOTE ---
Lasix drip started per MD order; 1 unit PRBC infusing per MD order; assessment unchanged; NSR on monitor and VSS; family at bedside and pt resting comfortably in bed.
--- NOTE | 2024-08-11 12:36 | W.PN.UPDATE ---
Update Note
Progress Note Update
Extensive discussion with pt and family at bedside (several nieces and daughter).
Discussed GOC.
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 She does NOT want dialysis. She does NOT want to continue with aggressive management, and agreed to be transitioned to comfort measures.
Offered emotional support to patient and family
RN on board
Specialists informed
[2024-08-11 13:15] LABS: Ferritin 52.2 ng/ml (11.1-264.0)
[2024-08-11 13:30] LABS: Vitamin B12 943 pg/ml (239-931)
--- NOTE | 2024-08-11 14:10 | W.PN.INTV ---
Today's Communication / Plan
Recommendations
Continue noninvasive mechanical ventilation as needed
Continue supplemental oxygen
Diuresis
Cardiac management
DNR status noted
Watch off antibiotics
Assessment
-
84-year-old woman with past medical history noted, transferred from outside hospital for evaluation of TAVR. Admitted with hypoxemia and shortness of breath. Found to be hypercapnic and acute kidney injury with hyperkalemia.
Currently requiring noninvasive mechanical ventilation for increased work of breathing
Acute hypoxemic and hypercapnic respiratory failure.
Chest x-ray: Bilateral parenchymal opacification suspicion for pulmonary edema.
Acute on chronic heart failure-severe valvulopathy
Leukocytosis likely reactive
Anemia-unclear etiology.
No evidence for acute bleeding.
Acute kidney injury-likely cardiorenal syndrome
Hyperkalemia
Condition present on admission:
Paroxysmal atrial fibrillation
Hypertension
Hypercholesterolemia
Severe aortic stenosis
History of TIA
History of chronic kidney disease
Bilateral carotid disease
Type 2 diabetes
Never smoker
Echocardiogram 08/10/2024: Normal biventricular size and function. Severe mitral stenosis. Severe aortic stenosis. Severe pulmonary hypertension.
Assessment and plan:
Patient is critically ill with acute hypoxemic and hypercapnic respiratory failure requiring noninvasive mechanical ventilation. Likely due to acute heart failure with pulmonary edema.
Echocardiogram this admission with severe aortic stenosis and severe mitral stenosis with severe pulmonary hypertension.
Pulmonary hypertension likely postcapillary, in view of echocardiogram.
-
Overall from the respiratory perspective clinically improved today
On supplemental oxygen but not requiring noninvasive mechanical ventilation continuously.
Feels debilitated and tired
-
Continue with cardiac management
Nephrology correspondence reviewed: Plan for Lasix drip as intermittent Lasix not working well.
Cardiology: Continues to follow. Echocardiogram noted with severe MS and AAS.=
Eventually to restart anticoagulants
Currently medications limited due to acute kidney injury.
Continue aspirin
-
Infiltrates more consistent with pulmonary edema.
Leukocytosis could be reactive-currently afebrile
Infectious disease was consulted: Antibiotics on hold. Not likely pneumonia.
Follow cultures
MRSA screening negative so far.
-
May use noninvasive mechanical ventilation as needed if patient desires.
Update from Dr. Fry noted. Patient would not want aggressive care, looking into de-escalation of therapy.
Wait for cardiology evaluation per
-
Acute kidney injury with hyperkalemia-cardiorenal suspected
Nephrology following
Lasix drip
-
Anemia: Unclear etiology. Unknown baseline. Last hemoglobin in our system in 2016 was 9.6.
Transfused today.
No evidence for GI bleeding.
Patient has been on anticoagulation.
-
Continue with glycemic control with insulin.
Target blood glucose 100 4180
-
DVT prophylaxis: SCDs.
Restart anticoagulation hopefully soon once able to take orals.
-
For now continue supportive care
Patient contemplating de-escalation of care, currently DNR.
If patient transition to hospice/comfort care critical care team will sign off.
Subjective Dataa
Subjective Data
Date of Service:
Date of Service: August 11, 2024
Chief Complaint: Seismograph Computer Follow Up (Hypoxemic respiratory failure due to acute heart failure due to valvular disease)
Subjective:
Patient this morning feels better.
Feels tired
On low rate supplemental oxygen
On noninvasive mechanical ventilation overnight
Less short of breath
Denies phlegm production. Denies hemoptysis
Review of Systems
General: Fever (n)
Cardiopulmonary: Dyspnea (improved)
GI: Abdominal Pain (n) and Nausea (n)
Neuro: Headache (n)
Objective Data
Data Reviewed
Vital Signs / I&O / Oxygen:
Vital Signs
Temp Pulse Resp BP Pulse Ox
98.0 F 73 26 97/49 99
08/11/24 11:31 08/11/24 11:00 08/11/24 11:31 08/11/24 11:00 08/11/24 11:31
Intake and Output
08/10/24 08/11/24 08/12/24
06:59 06:59 06:59
Intake Total 150 / 150
Output Total 175 / 175 740 / 765 145 / 145
Balance -175 / -175 -590 / -615 -145 / -145
SaO2 99
Nasal Cannula flow liters per 6
minute
Physical Exam
General: Comfortable
HEENT: Normocephalic
Cardiovascular: S1-S2
Respiratory: Crackles and Accessory Resp Muscle Use (none at rest)
GI: Soft and Non Distended
Neurology: Awake, AO x 3 and No Motor Deficits
Skin: Warm and Good Color
Labs/Micro/Reports
Lab Data
08/11/24 05:37
08/11/24 05:37
Laboratory Results
08/10/24 08/11/24 08/11/24
20:59 00:27 05:31
pH 7.26 L 7.28 L 7.30 L
pCO2 62 H 64 H 59 H
pO2 114 H 30 L* 95
HCO3 27.8 30.1 H 29.0 H
O2 Delivery Level bipap 18/5 bipap 20/8
Microbiology
08/10/24 05:04 Nose Nasal Screen MRSA (PCR) - Final
MRSA not detected - performed by PCR methodology.
[2024-08-11] MEDS: ATIVAN 1 MG PO (14:18)
[2024-08-11 14:48] LABS: Folate > 20.0 ng/ml (2.76-20)
--- NOTE | 2024-08-11 14:53 | W.PN.CD ---
Today's Communication / Plan
-
DNR/DNI
comfort measures
Impression / Plan
-
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
to [facility] with a chief complaint of shortness of breath on 08/08/2024.
Primary nylon operator: Formerly Dr. Brito, now with Dr. Christian
Goals of Care - I met Ms. Bella for the first time this morning after arranging her transfer here 08/09 from [facility]. This morning when I saw her she was breathing comfortably on nasal canula O2, reportedly an improvement from yesterday when she was
noted to be more tachypneic and requiring BiPAP. I explained that she had several very significant barriers to TAVR that would need to be addressed including her decompensated heart failure, oliguric renal failure, and anemia. We also discussed that
the her mitral valve disease would likely cause her to have residual heart failure even after TAVR, and that there are limited non-surgical solutions for her mitral valve disease. We discussed the plan to continue managing her heart failure and
cardiorenal syndrome with plan for TAVR CT once renal function and heart failure improved. After this, she met with nephrology later in morning about her cardiorenal syndrome with possible need for dialysis should it not improve. She is not
interested in dialysis. She spoke with her family and then communicated to her medical team that she would like to be DNR/DNI and pursue comfort focused care. The patient had not mentioned comfort measures during our earlier discussion, so I
returned and spoke again with the patient and family at length. I explained her possible path to recovery - aggressive management of heart failure and cardiorenal syndrome, and, pending recovery, TAVR CT and TAVR valve replacement, with the hope
that her residual mitral valve stenosis could be managed medically. 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 She reiterated multiple times that while she has for months wanted to go
through with valve replacement and wanted to live, with her more recent hospitalizations and setbacks she was 'exhausted' and didn't feel like she could go on. She and her family concurred that it was not in her interest to continue restorative care
and instead she wished to be comfortable. Based on this discussion we will focus on comfort oriented care and no longer pursue valve replacement. If feasible, we will attempt to discharge the patient on home hospice but her condition may not allow
for this and there is high likelihood she will pass in the hospital.
Physical Exam
Vital Signs/Labs
Vital Signs
Temp Pulse Resp BP Pulse Ox
36.7 C 73 26 97/49 99
08/11/24 11:31 08/11/24 11:00 08/11/24 11:31 08/11/24 11:00 08/11/24 11:31
08/10/24 08/11/24 08/12/24
06:59 06:59 06:59
Actual Weight 76.5 kg 78.4 kg
08/11/24 05:37
08/11/24 05:37
Magnesium 2.9 mg/dl (1.6-2.3) H 08/11/24 05:37
Triglycerides 157 mg/dl (10-149) H 08/10/24 00:50
LDL Cholesterol, Calc 58 mg/dl 08/10/24 00:50
VLDL Cholesterol, Calc 31 mg/dl (0-30) H 08/10/24 00:50
HDL Cholesterol 52 mg/dl 08/10/24 00:50
Free T4 1.50 ng/dl (0.78-2.19) 08/10/24 00:50
08/11/24
00:40
Hxs-C-Zzfgpdkndme Pept > 84425
LAB Results
08/10/24 08/10/24 08/10/24
00:49 00:50 05:13
Troponin I 0.405 H* Cancelled Cancelled
08/10/24 08/10/24 08/10/24
05:13 12:28 23:30
Troponin I 0.554 H* D 0.705 H* D Cancelled
08/11/24
00:40
Troponin I 0.857 H*
Physical Exam
Constitutional: Comfortable
Cardiovascular: Rhythm & rate is regular
Neuro/Psych: AO x 3
Data Reviewed
-
Date of Service: August 11, 2024
Medical Decision Making: Reviewed Test Results
EKG: Tracing Personally Visualized and interpreted
Echo: Tracing Personally Visualized and interpreted
X-Ray/CT/US/MRI/NUC/PET: Image Personally Visualized and interpreted
Labs: Labs Reviewed by me
Critical Care Time (in minutes): 50
Total Time Spent with Patient (in minutes): 40
--- NOTE | 2024-08-11 15:15 | PTCARENOTE ---
Ativan given and pt resting comfortably in bed with family at bedside; pt made DNR/DNI and bracelet applied.
--- NOTE | 2024-08-11 16:32 | CM ---
pt was made comfort care, DNR/DNI.
--- NOTE | 2024-08-11 16:38 | PN.CDI ---
CDI
- -
CDI:
Physician Documentation Request
Admit Date: 08/09/24 19:15
Dear Doctor Ang,
Please review the following and provide your response in the progress notes.
Clinical Indicators:
Pt admitted with Acute on Chronic Hypoxic /Hypercapnic Respiratory Failure/ Severe Aortic Stenosis/Acute on Chronic Diastolic CHF
There is potentially conflicting documentation in the record regarding the troponin diagnosis
Documented per H&P and progress notes 08/10 &08/11 , ' Non-ischemic myocardial injury ..'
Documented per cardiology consult, ' Abnormal troponin, Type II FL Chest pain-free...'
Please specify the diagnosis associated with the elevated troponin:
Type 2 FL
Non-ischemic myocardial injury( no change in documentation)
Other ( please specify)
Use of terms such as suspected, likely, concern for, or probable (associated with a specific diagnosis that is being evaluated, monitored, or treated as if it exists) are acceptable and can be coded in the inpatient setting, when documented at the
time of discharge.
Thank you,
Oksana Garcia RN
CDI Specialist
[employer] [employer]
Please use your independent medical judgment in providing your response.
--- NOTE | 2024-08-11 17:01 | PN.CDI ---
CDI
- -
CDI:
Physician Documentation Request
Admit Date: 08/09/24 19:15
Dear Doctor Ang,
Please review the following and provide your response in the progress notes.
Clinical Indicators:
Pt admitted with Acute on Chronic Hypoxic /Hypercapnic Respiratory Failure/ Severe Aortic Stenosis/Acute on Chronic Diastolic CHF
Documented per nursing wound care panel 08/10 ,' present on admission sacrum pressure injury stage 2 ...treatment silicone border foam..'
Physician documentation of the type and location of wounds is required for compliant documentation. Based on the above clinical findings and your assessment, please provide the following in your progress note:
1. Location of the ulcer/wound, including laterality.
2. Type (etiology) of ulcer/wound:
-
- Pressure (decubitus) ulcer
- Non-pressure ulcer
- Other ( please specify)
Use of terms such as suspected, likely, concern for, or probable (associated with a specific diagnosis that is being evaluated, monitored, or treated as if it exists) are acceptable and can be coded in the inpatient setting, when documented at the
time of discharge.
Thank you,
Oksana Garcia RN
CDI Specialist
[place] [employer]
Please use your independent medical judgment in providing your response.
*Source: National Pressure Ulcer Advisory Panel (NPUAP)
[2024-08-11] MEDS: MORPHINE SULFATE 1 MG IV ×2 (17:24→20:52)
--- NOTE | 2024-08-11 17:50 | PTCARENOTE ---
Report given to 2 Anton RN; pt belongings and family transferred with pt to 2120.
[2024-08-12] MEDS: ATIVAN 1 MG IV (03:59)
[2024-08-12] MEDS: NSS (PRESERVATIVE FREE) 0.5 ML IV (03:59)
[2024-08-12] MEDS: MORPHINE SULFATE 1 MG IV ×2 (05:27→06:39)
[2024-08-12 07:05] VITALS: BP 100/47
[2024-08-12 07:10] VITALS: BP 100/47
--- NOTE | 2024-08-12 09:40 | W.PN.DEATH ---
Pronouncement of
-
Called to see patient to pronounce.
No spontaneous heart tones or respirations noted.
Patient not responsive to verbal stimuli.
Patient is pronounced .
Time of : 09:35
Date of : 08/12/24
Family Notified: Yes (at bedside )
--- NOTE | 2024-08-12 10:12 | PTCARENOTE ---
family called this nurse into room at 0935. pt with no respiration/heart sounds. MD made aware. MD came and pronounced. do not enter sign placed outside of room. [employer] contacted. [facility] called. family remains at bedside at this time.
--- NOTE | 2024-08-12 10:56 | CM ---
Notified by nursing patient passed this am
--- NOTE | 2024-08-12 14:29 | W.DCSUMMARY ---
Discharge Summary
Discharge Data
Date of Admission: 08/09/24
Date of Discharge: 08/12/24
-
Pending Results: No
Hospital Course
Principal Diagnosis:
Acute on chronic hypoxic respiratory failure, due to acute on chronic heart failure from valvulopathy (severe aortic stenosis and severe mitral stenosis)
Severe pulmonary hypertension.
Acute on chronic anemia, likely multifactorial with severe aortic stenosis and acute kidney injury/chronic kidney disease
Acute kidney injury (GINGER) on chronic kidney disease stage III, likely due to cardiorenal syndrome
Hyperkalemia due to GINGER
Chronic Diagnoses:�
Severe aortic stenosis
Severe mitral stenosis
Hypertension
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
Nonobstructive coronary artery disease
Insulin-dependent diabetes
Paroxysmal atrial fibrillation, rate controlled
Hypertension
Consultations:�
Electrical Solderer
Cardiology
Nephrology
Infectious disease
Procedures:�
None
Clinical course:�
This was a 84-year-old female with past medical history as stated above, who was transferred from outside hospital for valve replacement evaluation.
She was clinically decompensated and unstable during her hospital stay.
She had been on BiPAP support for her hypoxic respiratory failure which was later weaned to mid flow nasal cannula.
She was treated with IV Lasix which was later transitioned to Lasix drip.
She received 1 unit PRBC for her hemoglobin 6.6.
She had been oliguric with increasing serum creatinine while in the hospital. Dialysis was discussed with the patient and she was firm about not wanting to start dialysis.
She had also made it clear that she would like to be DNR/DNI.
Due to her clinical instability and rapid decompensation, goals of care was discussed with her and her family.
The patient had made it very clear that she did not want any aggressive intervention and would like to start comfort measures.
The patient was transitioned to comfort measures with symptomatic medications morphine and Ativan as needed only.
She peacefully on 08/12/2024, and the pronouncement time was at 9:35 AM.
Her family was at bedside at pronouncement.
Discharge Plan
-
Patient Disposition:
Date/Time
Date/Time: 08/12/24 09:35
Discharge Date and Time
Discharge Date/Time: 08/12/24 14:20
Print Language: MACEDONIAN
== END 2024-08-12 14:20 | disposition expired ==
LOC: 2 NORTH 19:15
PROVIDERS: Internal Medicine; Nurse Practitioner Gerontology; Physician Assistant Medical; Radiology Diagnostic Radiology; ADMITTING PHYSICIAN Internal Medicine; ATTENDING PHYSICIAN Internal Medicine; FAMILY PHYSICIAN Internal Medicine; OTHER PHYSICIAN Internal Medicine Cardiovascular Disease; OTHER PHYSICIAN Internal Medicine Critical Care Medicine; OTHER PHYSICIAN Internal Medicine Infectious Disease; OTHER PHYSICIAN Specialist
PROC: 5A09357 Assistance with Respiratory Ventilation, Less than 24 Consecutive Hours, Continuous Positive Airway Pressure (ICD-10-PCS; 2024-08-09)
PROC: 02HV33Z Insertion of Infusion Device into Superior Vena Cava, Percutaneous Approach (ICD-10-PCS; 2024-08-10)
PROC: 30233N1 Transfusion of Nonautologous Red Blood Cells into Peripheral Vein, Percutaneous Approach (ICD-10-PCS; 2024-08-11)
DX: I08.0 Rheumatic disorders of both mitral and aortic valves (principal); I50.33 Acute on chronic diastolic (congestive) heart failure; I21.A1 Myocardial infarction type 2; J96.21 Acute and chronic respiratory failure with hypoxia; J96.02 Acute respiratory failure with hypercapnia; N17.9 Acute kidney failure, unspecified; Z66 Do not resuscitate; Z51.5 Encounter for palliative care; E87.29 Other acidosis; E87.1 Hypo-osmolality and hyponatremia; I45.2 Bifascicular block; Q21.12 Patent foramen ovale; I48.0 Paroxysmal atrial fibrillation; N18.30 Chronic kidney disease, stage 3 unspecified; E11.22 Type 2 diabetes mellitus with diabetic chronic kidney disease; I12.9 Hypertensive chronic kidney disease with stage 1 through stage 4 chronic kidney disease, or unspecified chronic kidney disease; E87.5 Hyperkalemia; D63.1 Anemia in chronic kidney disease; L89.152 Pressure ulcer of sacral region, stage 2; I27.20 Pulmonary hypertension, unspecified; I25.10 Atherosclerotic heart disease of native coronary artery without angina pectoris; E78.00 Pure hypercholesterolemia, unspecified; G25.81 Restless legs syndrome; J44.9 Chronic obstructive pulmonary disease, unspecified; K21.9 Gastro-esophageal reflux disease without esophagitis; M06.9 Rheumatoid arthritis, unspecified; Z88.2 Allergy status to sulfonamides; Z88.0 Allergy status to penicillin; Z86.73 Personal history of transient ischemic attack (TIA), and cerebral infarction without residual deficits; Z82.49 Family history of ischemic heart disease and other diseases of the circulatory system; Z79.899 Other long term (current) drug therapy; Z79.4 Long term (current) use of insulin; Z79.02 Long term (current) use of antithrombotics/antiplatelets; Z79.82 Long term (current) use of aspirin; Z79.84 Long term (current) use of oral hypoglycemic drugs
CPT/HCPCS: 36600; 71045; 80048; 80053; 80061; 80202; 82248; 82330; 82607; 82728; 82746; 82805; 82962; 83036; 83540; 83550; 83735; 83880; 84100; 84132; 84439; 84443; 84484; 85025; 85027; 86850; 86900; 86901; 86920; 87641; 93005; 93306; 94640; 94660; J1205; P9016